=== PATIENT | female | born 1970 | race Caucasian/White ===

== ENCOUNTER 2016-11-28 19:04 | Emergency (ER) | payer BC ==
[2016-11-28 19:33] VITALS: TEMP 98.8
[2016-11-28] MEDS ORDERED: KETOROLAC TROMETHAMINE INJ 30 MG/ML VIAL IV ONE (20:09)
[2016-11-28] MEDS ORDERED: PROCHLORPERAZINE INJ 10 MG/2 ML VIAL IV ONE (20:09)
[2016-11-28] MEDS ORDERED: diphenhydrAMINE HCL 50 MG/ML VIAL IV ONE (20:09)
[2016-11-28] MEDS ORDERED: SODIUM CHLORIDE 0.9% 1000ML 1,000 ML IVS ONE (20:10)
--- NOTE | 2016-11-28 20:15 | ED.PDOC ---
History of Present Illness - General Chief Complaint: Headache Stated Complaint: headache, n/v Time Seen by Provider: 11/28/16 20:08 Source: patient, RN notes reviewed, Vital Signs reviewed Exam Limitations: no limitations - History of Present Illness Initial Comments: Patient is a 46 y/o female who has had a headache since last night. She has thrown up three times and has nausea as well. The headache is severe. Patient does have a history of migraines, however does not have any medication at home. She has taken Tylenol and Aleve without any relief. Timing/Duration: 24 hours Quality: severe, pressure, stabbing, throbbing Head Injury Location: global Recent Head Trauma: no recent headache/trauma Improving Factors: nothing Worsening Factors: movement, other - light, noise Associated Symptoms: nausea/vomiting Allergies/Adverse Reactions: Allergies Penicillins Allergy (Verified 02/06/14 00:59) Sulfa Antibiotics Allergy (Verified 02/06/14 00:59) Home Medications: Ambulatory Orders ALPRAZolam [Xanax] 0.25 mg PO TID 11/28/16 Amitriptyline HCl 10 mg PO PRN 11/28/16 Metformin HCl 500 mg PO BID 11/28/16 Prochlorperazine Tab [Compazine Tab] 10 mg PO Q6H PRN #5 tab 11/28/16 Promethazine Tab [Phenergan Tablet] 25 mg PO PRN 11/28/16 Review of Systems - Review of Systems Constitutional: States: no symptoms reported EENTM: States: no symptoms reported Respiratory: States: no symptoms reported Cardiology: States: no symptoms reported Gastrointestinal/Abdominal: States: nausea, vomiting Genitourinary: States: no symptoms reported Musculoskeletal: States: back pain, neck pain Skin: States: no symptoms reported Neurological: States: headache Endocrine: States: no symptoms reported Hematologic/Lymphatic: States: no symptoms reported All other Systems: Reviewed and Negative Past Medical History (General) - Patient Medical History Hx Seizures: No Hx Stroke: No Hx Dementia: No Hx Asthma: No Hx of COPD: No Hx Cardiac Disorders: No Hx Congestive Heart Failure: No Hx Pacemaker: No Hx Hypertension: Yes - "only with headaches" Hx Thyroid Disease: No Hx Diabetes: Yes Hx Gastroesophageal Reflux: No Hx Renal Disease: No Hx Cancer: No Hx of HIV: No Hx Hepatitis C: No Hx MRSA: No Surgical History: Hysterectomy - Vaccination History Hx Tetanus, Diphtheria Vaccination: Yes Hx Influenza Vaccination: No - Social History Hx Tobacco Use: No Hx Chewing Tobacco Use: No Hx Alcohol Use: No Hx Substance Use Treatment: No Hx Physical Abuse: No Hx Emotional Abuse: No Hx Suspected Abuse: No - Activities of Daily Living Hospice Agency (if applicable):: None - Female History Patient is a Female of Child Bearing Age (10 -59 yrs old): No Patient : No Family Medical History - Family History Mother Living Status: Still Living Hx Family Congestive Heart Failure: Yes Hx Family Diabetes: Yes Father Living Status: Hx Family Congestive Heart Failure: Yes Physical Exam - Physical Exam General Appearance: Alert, Obvious distress Eyes, Ears, Nose, Throat Exam: PERRL/EOMI, normal ENT inspection, TMs normal, pharynx normal Neck: full range of motion, tender lateral Cardiovascular/Chest: regular rate, rhythm, no edema, no gallop, no murmur Respiratory: lungs clear, normal breath sounds, no respiratory distress, no accessory muscle use Gastrointestinal/Abdominal: normal bowel sounds, soft, no organomegaly, tenderness - suprapubic Back Exam: normal inspection, no vertebral tenderness, CVA tenderness (R), CVA tenderness (L) Extremity: normal range of motion, non-tender, normal inspection, no pedal edema , no calf tenderness 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 I will give her a prescription for compazine and have instructed her to take this in addition to Aleve 440 mg and benadryl 50 mg should her headache return. She will follow up in the ED if her headache worsens or she starts running fever. - Results/Orders Results/Orders: 11/28/16 11/28/16 19:22 20:46 Temperature 98.8 F Pulse Rate [ 74 91 H left] Respiratory 18 18 Rate Blood Pressure 152/106 127/84 [Left Arm] O2 Sat by Pulse 99 97 Oximetry 11/28/16 20:25 ERYTHROCYTE SEDIMENTATION RATE Stat Laboratory Results WBC 6.8 K/mm3 (4.8-10.8) 11/28/16 20:25 RBC 4.44 M/mm3 (4.20-5.40) 11/28/16 20:25 Hgb 12.4 gm/dL (12.0-16.0) 11/28/16 20:25 Hct 36.6 % (36.0-47.0) 11/28/16 20:25 MCV 82.3 fl (81.0-99.0) 11/28/16 20:25 MCH 27.9 pg (27.0-31.0) 11/28/16: MCHC 33.8 g/dL (33.0-37.0) 11/28/16: RDW 13.1 % (11.5-14.5) 11/28/16 20: Plt Count 228 K/mm3 (130-400) 11/28/16 20:25 MPV 7.6 fl (7.40-10.4) 11/28/16 20:25 Absolute Neuts (auto) 3.60 K/uL (1.8-6.8) 11/28/16 20:25 Absolute Lymphs (auto) 2.40 K/uL (1.0-3.4) 11/28/16 20:25 Absolute Monos (auto) 0.50 K/uL (0.2-0.8) 11/28/16 20:25 Absolute Eos (auto) 0.20 K/uL (0.0-0.4) 11/28/16 20: Absolute Basos (auto) 0.00 K/uL (0.0-0.1) 11/28/16 20:25 Neutrophils % 52.9 % (42.0-78.0) 11/28/16 20:25 Lymphocytes % 35.2 % (20.0-50.0) 11/28/16 20: Monocytes % 7.9 % (2.0-9.0) 11/28/16 20:25 Eosinophils % 3.3 % (1.0-5.0) 11/28/16 20:25 Basophils % 0.7 % (0.0-2.0) 11/28/16 20:25 Sodium 140 mmol/L (135-145) 11/28/16 20:25 Potassium 3.7 mmol/L (3.6-5.0) 11/28/16 20:25 Chloride 103 mmol/L (101-111) 11/28/16 20:25 Carbon Dioxide 31 mmol/L (21-31) 11/28/16 20:25 Anion Gap 9.7 (12-18) L 11/28/16 20:25 BUN 16 mg/dL (7-18) 11/28/16 20:25 Creatinine 0.86 mg/dL (0.6-1.3) 11/28/16 20:25 BUN/Creatinine Ratio 18.6 (10-20) 11/28/16 20:25 Random Glucose 101 mg/dL (70-105) 11/28/16 20:25 Serum Osmolality 280.7 mOsm/L (275-295) 11/28/16 20:25 Calcium 9.0 mg/dL (8.4-10.2) 11/28/16 20:25 Total Bilirubin 0.6 mg/dL (0.2-1.0) 11/28/16 20:25 AST 22 IU/L (10-42) 11/28/16 20:25 ALT 23 IU/L (10-60) 11/28/16 20:25 Alkaline Phosphatase 65 IU/L (42-121) 11/28/16 20:25 Serum Total Protein 7.2 gm/dL (6.4-8.2) 11/28/16 20:25 Albumin 4.3 g/dl (3.2-5.5) 11/28/16 20:25 Globulin 2.9 gm/dL (2.3-3.5) 11/28/16 20:25 Albumin/Globulin Ratio 1.5 (1.1-1.9) 11/28/16 20:25 Urine Color Yellow (Yellow) 11/28/16 21:10 Urine Appearance Clear (Clear) 11/28/16 21:10 Urine pH 7.0 (4.5-7.8) 11/28/16 21:10 Ur Specific [place] 1.025 (1.005-1.030) 11/28/16 21:10 Urine Protein Trace mg/dL 11/28/16 21:10 Urine Glucose (UA) Negative mg/dL (Negative) 11/28/16 21:10 Urine Ketones 15 mg/dL (NEGATIVE) H 11/28/16 21:10 Urine Blood Negative (Negative) 11/28/16 21:10 Urine Nitrite Negative 11/28/16 21:10 Urine Bilirubin Negative (NEGATIVE) 11/28/16 21:10 Urine Urobilinogen 1.0 mg/dL (0.2-1.0) 11/28/16 21:10 Ur Leukocyte Esterase Negative (Negative) 11/28/16 21:10 Urine RBC 0 /hpf 11/28/16 21:10 Urine WBC 3-5 /hpf H 11/28/16 21:10 Ur Epithelial Cells 0-1 /hpf 11/28/16 21:10 Urine Bacteria 1+ 11/28/16 21:10 Urine Mucus Large 11/28/16 21:10 Departure - Departure Clinical Impression: Migraine Qualifiers: Migraine type: other Status migrainosus presence: without status migrainosus Intractability: not intractable Qualified Code(s): G43.809 - Other migraine, not intractable, without status migrainosus Time of Disposition: 21:22 Disposition: Discharge to Home or Self Care Condition: Excellent Departure Forms: ED Discharge - Pt. Copy, Patient Portal Self Enrollment Instructions: Migraine -- Adult, DI for Migraine Diet: resume usual diet Prescriptions: Prochlorperazine Tab [Compazine Tab] 10 mg PO Q6H PRN #5 tab PRN Reason: headache Home Medications: Ambulatory Orders ALPRAZolam [Xanax] 0.25 mg PO TID 11/28/16 Amitriptyline HCl 10 mg PO PRN 11/28/16 Metformin HCl 500 mg PO BID 11/28/16 Prochlorperazine Tab [Compazine Tab] 10 mg PO Q6H PRN #5 tab 11/28/16 Promethazine Tab [Phenergan Tablet] 25 mg PO PRN 11/28/16 Additional Instructions: Follow up with PCP if symptoms persist. May take over the counter Aleve 2 tablets, Benadryl 50 mg, and prescription compazine for headache. Follow up for worsening of headache or fever.
[2016-11-28 20:50] VITALS: O2SAT 97
[2016-11-28 21:39] VITALS: BP 128/74
== END 2016-11-28 21:40 | disposition home or self-care (01) ==
LOC: ER 19:04
DX: G43.809 Other migraine, not intractable, without status migrainosus (principal); I10 Essential (primary) hypertension; E11.9 Type 2 diabetes mellitus without complications; Z79.899 Other long term (current) drug therapy; Z88.0 Allergy status to penicillin; Z88.2 Allergy status to sulfonamides
CPT/HCPCS: 36415; 80053; 81001; 85025; 85651; J0780; J1200; J1885; J7030

== ENCOUNTER 2017-06-23 21:22 | Emergency (ER) | payer OTHER ==
[2017-06-23 22:07] VITALS: TEMP 98.3; O2SAT 100
[2017-06-23] MEDS ORDERED: PANTOPRAZOLE SODIUM IV 40 MG VIAL IV ONE (22:11)
[2017-06-23] MEDS ORDERED: LIDOCAINE VIS-MYLANTA 30 ML UD PO ONE (22:12)
--- NOTE | 2017-06-23 22:39 | ED.PDOC ---
History of Present Illness - General Chief Complaint: Abdominal Pain Stated Complaint: abd pain Time Seen by Provider: 06/23/17 21:24 Information Source: patient, RN notes reviewed, Vital Signs reviewed Exam Limitations: no limitations - History of Present Illness Initial Comments: Patient comes to the ER with c/o epigastric abdominal pain. She was diagnosed with stomach ulcers 2 months ago. She is taking Carafate TID, Zantac BID but is still hurting. She is tired of hurting and just wants to feel better. + nausea and vomiting. Pain radiates up into her chest. Abdominal Pain Onset Location: epigastric Pain Radiation: RUQ, chest, back - R flank Quality: moderate, sharpness, stabbing Timing/Duration: constant - for months Improving Factors: nothing Worsening Factors: nothing Associated Symptoms: back pain, chest pain, nausea/vomiting Review of Systems - Review of Systems Constitutional: States: no symptoms reported Respiratory: States: no symptoms reported Cardiology: States: no symptoms reported Gastrointestinal/Abdominal: States: see HPI, abdominal pain, nausea, vomiting Musculoskeletal: States: no symptoms reported Skin: States: no symptoms reported Neurological: States: no symptoms reported All other Systems: No Change from Baseline Past Medical History (General) - Patient Medical History Hx Seizures: No Hx Stroke: No Hx Dementia: No Hx Asthma: No Hx of COPD: No Hx Cardiac Disorders: No Hx Congestive Heart Failure: No Hx Pacemaker: No Hx Hypertension: Yes - "only with headaches" Hx Thyroid Disease: No Hx Diabetes: Yes Hx Gastroesophageal Reflux: No Hx Renal Disease: No Hx Cancer: No Hx of HIV: No Hx Hepatitis C: No Hx MRSA: No Surgical History: Hysterectomy, other - Vaccination History Hx Tetanus, Diphtheria Vaccination: Yes Hx Influenza Vaccination: No - Social History Hx Tobacco Use: No Hx Chewing Tobacco Use: No Hx Alcohol Use: No Hx Substance Use Treatment: No Hx Physical Abuse: No Hx Emotional Abuse: No Hx Suspected Abuse: No - Female History Patient : No Family Medical History - Family History Mother Living Status: Still Living Hx Family Congestive Heart Failure: Yes Hx Family Diabetes: Yes Father Living Status: Hx Family Congestive Heart Failure: Yes Physical Exam - Physical Exam General Appearance: Alert, No apparent distress, Well Developed, Well Groomed, Well Hydrated, Well Nourished Neck: supple, normal inspection Respiratory: lungs clear, normal breath sounds, no respiratory distress, no accessory muscle use, other - tender to palpation over lower sternum Cardiovascular/Chest: regular rate, rhythm, no gallop, no murmur Gastrointestinal/Abdominal: normal bowel sounds, soft, no organomegaly, tenderness - Epigastric and RUQ w/o guarding or rebound Extremity: normal range of motion, normal inspection Neurologic: alert, normal mood/affect, oriented x 3 Skin Exam: normal color, warm/dry Comments: Vital Signs 06/23/17 21:57 Temperature 98.3 F Pulse Rate [ 66 left] Respiratory 18 Rate Blood Pressure 140/69 [left] O2 Sat by Pulse 100 Oximetry Progress - Progress Progress: 06/23/17 23:11 She is feeling better after GI cocktail and Protonix 40mg IV Recommended Protonix BID and cut carafate to once a day at noon due to constipation. - Results/Orders Results/Orders: Laboratory Tests 06/23/17 06/23/17 22:20 22:20 WBC 7.3 RBC 4.10 L Hgb 11.6 L Hct 34.3 L MCV 83.7 MCH 28.2 MCHC 33.8 RDW 13.2 Plt Count 239 MPV 7.3 L Absolute Neuts (auto) 4.10 Absolute Lymphs (auto) 2.50 Absolute Monos (auto) 0.50 Absolute Eos (auto) 0.10 Absolute Basos (auto) 0.10 Neutrophils % 55.8 Lymphocytes % 34.4 Monocytes % 7.3 Eosinophils % 1.8 Basophils % 0.7 Sodium 140 Potassium 3.5 L Chloride 104 Carbon Dioxide 30 Anion Gap 9.5 L BUN 16 Creatinine 0.74 BUN/Creatinine Ratio 21.6 H Random Glucose 102 Serum Osmolality 280.8 Calcium 9.3 Total Bilirubin 0.2 AST 20 ALT 15 Alkaline Phosphatase 73 Serum Total Protein 7.3 Albumin 4.4 Globulin 2.9 Albumin/Globulin Ratio 1.5 Amylase 40 Lipase 27 Departure - Departure Clinical Impression: Gastric ulcer Qualifiers: Gastric ulcer chronicity: chronic Gastric ulcer complication status: without hemorrhage or perforation Qualified Code(s): K25.7 - Chronic gastric ulcer without hemorrhage or perforation GERD (gastroesophageal reflux disease) Qualifiers: Esophagitis presence: esophagitis presence not specified Qualified Code(s): K21.9 - Gastro-esophageal reflux disease without esophagitis Time of Disposition: 23:13 Disposition: Discharge to Home or Self Care Condition: Good Departure Forms: ED Discharge - Pt. Copy, Patient Portal Self Enrollment Instructions: DI for Gastric Ulcer Diet: resume usual diet Activity: increase activity as tolerated Referrals: SERGEY LINK [Primary Care Provider] - 1-2 Weeks Prescriptions: Pantoprazole Tablet [Protonix] 40 mg PO BID #60 tab Home Medications: Ambulatory Orders ALPRAZolam [Xanax] 0.25 mg PO TID 11/28/16 Amitriptyline HCl 10 mg PO PRN 11/28/16 Metformin HCl 500 mg PO BID 11/28/16 Prochlorperazine Tab [Compazine Tab] 10 mg PO Q6H PRN #5 tab 11/28/16 Promethazine Tab [Phenergan Tablet] 25 mg PO PRN 11/28/16 Pantoprazole Tablet [Protonix] 40 mg PO BID #60 tab 06/23/17
[2017-06-23 23:27] VITALS: BP 97/66
== END 2017-06-23 23:27 | disposition home or self-care (01) ==
LOC: ER 21:22
DX: K21.9 Gastro-esophageal reflux disease without esophagitis (principal); K25.7 Chronic gastric ulcer without hemorrhage or perforation; E11.9 Type 2 diabetes mellitus without complications

== ENCOUNTER 2018-01-18 09:08 | Emergency (ER) | payer SELFPAY ==
[2018-01-18] MEDS ORDERED: KETOROLAC TROMETHAMINE INJ 30 MG/ML VIAL IV ONE (09:32)
[2018-01-18] MEDS ORDERED: ONDANSETRON ODT 8 MG TAB SL ONE (09:32)
[2018-01-18] MEDS ORDERED: SODIUM CHLORIDE 0.9% 1000ML 1,000 ML IVS ONE (09:32)
[2018-01-18] MEDS ORDERED: ALUM & MAG HYDROX-SIMETHICONE 30 ML, LIDOCAINE VISCOUS 2% 15 ML PO ONE ×4 (09:32→10:25)
[2018-01-18] MEDS ORDERED: LIDOCAINE HCL 2% (MOUTH-THROAT) 15 ML UD ONE ×2 (09:35→10:30)
[2018-01-18] MEDS ORDERED: ALUM & MAG HYDROX-SIMETHICONE 30 ML UD ONE ×2 (09:36→10:30)
--- NOTE | 2018-01-18 09:36 | ED.PDOC ---
History of Present Illness - General Chief Complaint: General Stated Complaint: epigastric pain and emesis Time Seen by Provider: 01/18/18 09:30 Source: patient Exam Limitations: no limitations - History of Present Illness Initial Comments: patient comes in this morning via EMS for sudden onset of epigastric pain that radiates to the substernal area, diaphoresis, nausea and vomiting with onset of "migraine" headache. Patient states she has these headaches in the past and normally takes Tylenol for it. She's never been placed on triptan and a headache right now is severe, bilateral frontal, constant, with some associated photophobia. Patient states that on Sunday she had some dizziness and today she is well lightheaded but no overt vision change. Patient states the abdominal pain feels like a burning and a raw feeling in her throat and epigastric area from after she was having the emesis. She's been seen for something similar to this before and they thought it was gastritis. She has had endoscopy but states she is not sure if she had an ulcer or if she just had GERD. Patient currently takes Nexium for this and was recently changed from Protonix and Nexium just this week. Patient additionally states that she felt like her heart was racing and was beating very quickly when all this was happening. Patient currently continues to have discomfort in epigastric region which is more moderate with some nausea and the headache as listed above. Patient had been her usual health before this but has been suffering from reflux for some time. Patient does not smoke but does have a history of being diagnosed with prediabetes although she has not on any medication and her last hemoglobin A1c was 5.8. She has no family history of heart disease although both of her parents had heart failure in their 70s. Patient does not drink or take drugs but does take [id number]-[id number] supplements including peppermint oil. Timing/Duration: 1/2 hour Severity: severe Improving Factors: nothing Worsening Factors: nothing Associated Symptoms: other - see HPI Allergies/Adverse Reactions: Allergies Penicillins Allergy (Verified 02/06/14 00:59) Sulfa Antibiotics Allergy (Verified 02/06/14 00:59) Home Medications: Ambulatory Orders ALPRAZolam [Xanax] 0.25 mg PO TID 11/28/16 Amitriptyline HCl 10 mg PO PRN 11/28/16 Metformin HCl 500 mg PO BID 11/28/16 Prochlorperazine Tab [Compazine Tab] 10 mg PO Q6H PRN #5 tab 11/28/16 Promethazine Tab [Phenergan Tablet] 25 mg PO PRN 11/28/16 Pantoprazole Tablet [Protonix] 40 mg PO BID #60 tab 06/23/17 Review of Systems - Review of Systems Constitutional: States: diaphoresis, malaise, weakness. Denies: chills, fever EENTM: States: blurred vision. Denies: eye pain, double vision, ear pain, ear discharge, nose pain, nose congestion, throat pain Respiratory: Denies: cough, orthopnea, wheezing Cardiology: States: chest pain, palpitations. Denies: edema Gastrointestinal/Abdominal: States: abdominal pain, nausea, vomiting. Denies: constipation, diarrhea Genitourinary: States: no symptoms reported Musculoskeletal: States: no symptoms reported Skin: States: no symptoms reported Neurological: States: no symptoms reported Past Medical History (General) - Patient Medical History Hx Seizures: No Hx Stroke: No Hx Dementia: No Hx Asthma: No Hx of COPD: No Hx Cardiac Disorders: No Hx Congestive Heart Failure: No Hx Pacemaker: No Hx Hypertension: Yes - "only with headaches" Hx Thyroid Disease: No Hx Diabetes: No - prediabetes no meds HgA1C 5.8 Hx Gastroesophageal Reflux: No Hx Renal Disease: No Hx Cancer: No Hx of HIV: No Hx Hepatitis C: No Hx MRSA: No - Vaccination History Hx Tetanus, Diphtheria Vaccination: Yes Hx Influenza Vaccination: No - Social History Hx Tobacco Use: No Hx Chewing Tobacco Use: No Hx Alcohol Use: No Hx Substance Use Treatment: No Hx Physical Abuse: No Hx Emotional Abuse: No Hx Suspected Abuse: No - Female History Patient : No Family Medical History - Family History Mother Living Status: Still Living Hx Family Congestive Heart Failure: Yes Hx Family Diabetes: Yes Father Living Status: Hx Family Congestive Heart Failure: Yes Physical Exam - Physical Exam General Appearance: Alert, Comfortable Eye Exam: bilateral normal Ears, Nose, Throat: hearing grossly normal, normal ENT inspection, normal pharynx Neck: non-tender, full range of motion, supple, normal inspection, carotid bruit Respiratory: chest non-tender, lungs clear, normal breath sounds, no respiratory distress, no accessory muscle use Cardiovascular/Chest: normal peripheral pulses, regular rate, rhythm, no edema, no gallop, no JVD, no murmur Peripheral Pulses: radial,right: 2+, radial,left: 2+, posterior tibialis,right: 2+, posterior tibialis,left: 2+ Gastrointestinal/Abdominal: normal bowel sounds, soft, no organomegaly, no pulsatile mass, other - TTP at the epigastrum and R and L UQ with no rebound or guarding Back Exam: normal inspection, no CVA tenderness Extremity: normal range of motion Neurologic: alert, oriented x 3 Progress - Progress Progress: 01/18/18 10:26 01/18/18 09:32 Sodium Chloride 0.9% 1000ML [Ns 1000 ml] 1,000 ml IVS ONCE 01/18/18 09:45 EKG STAT 01/18/18 10:25 GI Cocktail 45 ML Alum & Mag Hydrox-Simethicone [Mylanta] 30 ml Lidocaine Viscous 2% [Xylocaine Viscous 2%] 15 ml PO ONCE Abdomen,Limited [US] Stat Laboratory Results WBC 11.9 K/mm3 (4.8-10.8) H 01/18/18 09:41 RBC 4.76 M/mm3 (4.20-5.40) 01/18/18 09:41 Hgb 13.4 gm/dL (12.0-16.0) 01/18/18 09:41 Hct 39.5 % (36.0-47.0) 01/18/18 09:41 MCV 83.0 fl (81.0-99.0) 01/18/18 09:41 MCH 28.2 pg (27.0-31.0) 01/18/18 09:41 MCHC 34.0 g/dL (33.0-37.0) 01/18/18 09:41 RDW 13.2 % (11.5-14.5) 01/18/18 09:41 Plt Count 283 K/mm3 (130-400) 01/18/18 09:41 MPV 7.8 fl (7.40-10.4) 01/18/18 09:41 Absolute Neuts (auto) 10.00 K/uL (1.8-6.8) H 01/18/18 09:41 Absolute Lymphs (auto) 1.20 K/uL (1.0-3.4) 01/18/18 09:41 Absolute Monos (auto) 0.50 K/uL (0.2-0.8) 01/18/18 09:41 Absolute Eos (auto) 0.10 K/uL (0.0-0.4) 01/18/18 09:41 Absolute Basos (auto) 0.00 K/uL (0.0-0.1) 01/18/18 09:41 Neutrophils % 84.3 % (42.0-78.0) H 01/18/18 09:41 Lymphocytes % 10.1 % (20.0-50.0) L 01/18/18 09:41 Monocytes % 4.5 % (2.0-9.0) 01/18/18 09:41 Eosinophils % 0.7 % (1.0-5.0) L 01/18/18 09:41 Basophils % 0.4 % (0.0-2.0) 01/18/18 09:41 Sodium 138 mmol/L (135-145) 01/18/18 09:41 Potassium 3.9 mmol/L (3.6-5.0) 01/18/18 09:41 Chloride 102 mmol/L (101-111) 01/18/18 09:41 Carbon Dioxide 28 mmol/L (21-31) 01/18/18 09:41 Anion Gap 11.9 (12-18) L 01/18/18 09:41 BUN 14 mg/dL (7-18) 01/18/18 09:41 Creatinine 0.69 mg/dL (0.6-1.3) 01/18/18 09:41 BUN/Creatinine Ratio 20.3 (10-20) H 01/18/18 09:41 Random Glucose 149 mg/dL (70-105) H 01/18/18 09:41 Serum Osmolality 279.0 mOsm/L (275-295) 01/18/18 09:41 Calcium 9.5 mg/dL (8.4-10.2) 01/18/18 09:41 Total Bilirubin 0.6 mg/dL (0.2-1.0) 01/18/18 09:41 AST 27 IU/L (10-42) 01/18/18 09:41 ALT 28 IU/L (10-60) 01/18/18 09:41 Alkaline Phosphatase 88 IU/L (42-121) 01/18/18 09:41 Creatine Kinase 85 IU/L (26-140) 01/18/18 09:41 CK-MB (CK-2) 1.6 ng/mL (0.0-4.4) 01/18/18 09:41 CK-MB (CK-2) % Not Reportable 01/18/18 09:41 Troponin I < 0.02 ng/mL (0.01-0.05) 01/18/18 09:41 Serum Total Protein 8.0 gm/dL (6.4-8.2) 01/18/18 09:41 Albumin 4.3 g/dl (3.2-5.5) 01/18/18 09:41 Globulin 3.7 gm/dL (2.3-3.5) H 01/18/18 09:41 Albumin/Globulin Ratio 1.2 (1.1-1.9) 01/18/18 09:41 Amylase 42 U/L (28-100) 01/18/18 09:41 Lipase 23 U/L (22-51) 01/18/18 09:41 EKG HR of 91 with NSR and normal axis and no ST elevation or depression after GI cocktail patient states her pain is down from a 9 to a 7. However she is now sitting up talking comfortably without a noticeable discomfort. On exam she does not some mild tenderness epigastric area but no rebound or guarding. We have ordered a another GI cocktail and ultrasound of her gallbladder as she does still continue to have significant discomfort. However, patient looks noticeably improved. 01/18/18 12:19 Patient Name: YEIMY MCKEON Gender: Female Date of : 1970 Referring Physician: LIDIA ESCOBEDO Organization: [facility] Accession Number: [id number] Requested Date: January 18, 2018 10:25 Report Status: Final Requested Procedure: 1 Procedure Description: Abdomen,Limited Modality: US Findings Reporting MD: Mike Castro Fellow MD: Not available Dictation Time: Grocery Clerk Marking: Not available Equip Maint Eng Date: EXAM DESCRIPTION: Abdomen,Limited CLINICAL HISTORY: epigastric and RUQ pain ?hortensia COMPARISON: None Available. TECHNIQUE: Right upper quadrant ultrasound] FINDINGS: The liver has a normal appearance. There is no bile duct dilatation. The common bile duct measures 6 mm. The gallbladder appears distended. No stones are seen. Increased echogenicity and a full or thickened appearance to the pancreas is observed. No mass is detected. The upper abdominal aorta and the inferior vena cava are unremarkable. The right kidney is normal in size, shape, and echotexture. IMPRESSION: 1. An edematous appearance is observed to the pancreas. 2. The gallbladder is distended without stones Pain is almost completely resolved as has headache after second GI cocktail. Patient has had no emesis since arrival. Patient states she started getting sick when she switched to the Nexium earlier this week. She will stop Nexium and restart Protonix. [place] diet and follow up with GI for pancreatic swelling and possible Hida scan. Patient to stop peppermint oil as well. Departure - Departure Clinical Impression: Gastritis Qualifiers: Gastritis type: unspecified gastritis Chronicity: acute Gastritis bleeding: without bleeding Qualified Code(s): K29.00 - Acute gastritis without bleeding Disposition: Discharge to Home or Self Care Condition: Good Departure Forms: ED Discharge - Pt. Copy, Patient Portal Self Enrollment Diet: bland diet Activity: increase activity as tolerated Referrals: SERGEY LINK [Primary Care Provider] - 1-2 Weeks Home Medications: Ambulatory Orders ALPRAZolam [Xanax] 0.25 mg PO TID 11/28/16 Amitriptyline HCl 10 mg PO PRN 11/28/16 Metformin HCl 500 mg PO BID 11/28/16 Prochlorperazine Tab [Compazine Tab] 10 mg PO Q6H PRN #5 tab 11/28/16 Promethazine Tab [Phenergan Tablet] 25 mg PO PRN 11/28/16 Pantoprazole Tablet [Protonix] 40 mg PO BID #60 tab 06/23/17 Additional Instructions: patient is to stop Nexium and restart her Protonix. [place] diet. Stop Peppermint oil supplement. Follow-up with GI within the next week to discuss if HIDA scan and follow up on the pancreas as needed.
--- NOTE | 2018-01-18 10:06 | RAD ---
EXAM DESCRIPTION: Chest,1 View CLINICAL HISTORY: epigastic/chest pain COMPARISON: Chest radiograph dated September 28, 2010 Findings: Single upright portable frontal view of the chest. Cardiac silhouette and pulmonary vascularity are within normal limits. Lungs are clear without focal consolidative infiltrates. No pleural effusion. No pneumothorax. No acute osseous abnormality. IMPRESSION: No radiographic evidence for acute cardiopulmonary process. Electronically signed by: Mike Agustin MD 01/18/2018 10:05 AM CDT
--- NOTE | 2018-01-18 12:06 | US ---
EXAM DESCRIPTION: Abdomen,Limited CLINICAL HISTORY: epigastric and RUQ pain ?hortensia COMPARISON: None Available. TECHNIQUE: Right upper quadrant ultrasound] FINDINGS: The liver has a normal appearance. There is no bile duct dilatation. The common bile duct measures 6 mm. The gallbladder appears distended. No stones are seen. Increased echogenicity and a full or thickened appearance to the pancreas is observed. No mass is detected. The upper abdominal aorta and the inferior vena cava are unremarkable. The right kidney is normal in size, shape, and echotexture. IMPRESSION: 1. An edematous appearance is observed to the pancreas. 2. The gallbladder is distended without stones. Electronically signed by: Mike Castro MD 01/18/2018 12:04 PM CDT
[2018-01-18 12:15] VITALS: TEMP 97.7; O2SAT 100
[2018-01-18 12:40] VITALS: BP 127/71
== END 2018-01-18 12:47 | disposition home or self-care (01) ==
LOC: ER 09:08
DX: K29.00 Acute gastritis without bleeding (principal); G43.909 Migraine, unspecified, not intractable, without status migrainosus; R42 Dizziness and giddiness; R73.03 Prediabetes; I10 Essential (primary) hypertension; Z79.899 Other long term (current) drug therapy; Z88.0 Allergy status to penicillin; Z88.2 Allergy status to sulfonamides
CPT/HCPCS: 36415; 71045; 76775; 80053; 82150; 82550; 82553; 83690; 84484; 85025; 93005; J1885; J7030

== ENCOUNTER 2018-03-27 19:44 | Observation (INO) | payer SELFPAY ==
--- NOTE | 2018-03-27 20:04 | ED.PDOC ---
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 Timing/Duration: constant, other - 36 hours Severity: moderate Improving Factors: nothing Worsening Factors: nothing Associated Symptoms: other - see hpi Allergies/Adverse Reactions: Allergies Penicillins Allergy (Verified 02/06/14 00:59) Sulfa Antibiotics Allergy (Verified 02/06/14 00:59) Home Medications: Ambulatory Orders ALPRAZolam [Xanax] 0.25 mg PO TID 11/28/16 Amitriptyline HCl 10 mg PO PRN 11/28/16 Metformin HCl 500 mg PO BID 11/28/16 Prochlorperazine Tab [Compazine Tab] 10 mg PO Q6H PRN #5 tab 11/28/16 Promethazine Tab [Phenergan Tablet] 25 mg PO PRN 11/28/16 Pantoprazole Tablet [Protonix] 40 mg PO BID #60 tab 06/23/17 Review of Systems - Review of Systems Constitutional: States: no symptoms reported EENTM: States: no symptoms reported Respiratory: States: no symptoms reported Cardiology: States: no symptoms reported Gastrointestinal/Abdominal: States: no symptoms reported Genitourinary: States: no symptoms reported Skin: States: see HPI Neurological: States: anxiety, depressed Endocrine: States: no symptoms reported Past Medical History (General) - Patient Medical History Hx Seizures: No Hx Stroke: No Hx Dementia: No Hx Asthma: No Hx of COPD: No Hx Cardiac Disorders: No Hx Congestive Heart Failure: No Hx Pacemaker: No Hx Hypertension: Yes - "only with headaches" Hx Thyroid Disease: No Hx Diabetes: No - prediabetes no meds HgA1C 5.8 Hx Gastroesophageal Reflux: Yes Hx Renal Disease: No Hx Cancer: No Hx of HIV: No Hx Hepatitis C: No Hx MRSA: No Hx Other PMH: Yes - anxiety /depression takes prozac as needed Surgical History: tonsillectomy, other - hysterectomy,BTL,benign cyst left breast - Vaccination History Hx Tetanus, Diphtheria Vaccination: Yes Hx Influenza Vaccination: No Hx Pneumococcal Vaccination: No - Social History Hx Tobacco Use: No Hx Chewing Tobacco Use: No Hx Alcohol Use: No Hx Substance Use Treatment: No Hx Physical Abuse: No Hx Emotional Abuse: No Hx Suspected Abuse: No - Female History Patient : No Family Medical History - Family History Mother Living Status: Still Living Hx Family Congestive Heart Failure: Yes - dad Hx Family Stroke: Yes - mom Hx Family Diabetes: Yes - mom/sister Father Living Status: Hx Family Congestive Heart Failure: Yes Physical Exam - Physical Exam General Appearance: Alert, Anxious, Comfortable, No apparent distress Eye Exam: bilateral normal Ears, Nose, Throat: hearing grossly normal, normal ENT inspection, normal pharynx Neck: non-tender, full range of motion, supple Respiratory: chest non-tender, lungs clear, normal breath sounds, no respiratory distress Cardiovascular/Chest: normal peripheral pulses, regular rate, rhythm, no murmur Peripheral Pulses: radial,right: 2+, radial,left: 2+ Gastrointestinal/Abdominal: normal bowel sounds, non tender, soft, no organomegaly Back Exam: normal inspection, no CVA tenderness, no vertebral tenderness Extremity: normal range of motion - both upper extremitites, non-tender, no pedal edema, no calf tenderness, other Neurologic: no motor/sensory deficits, alert, oriented x 3 Skin Exam: normal color, warm/dry Lymphatic: no adenopathy Progress - Progress Progress: 03/27/18 20:58 Vital Signs - 8 hr 03/27/18 19:57 Temperature 98.2 F Pulse Rate 66 Pulse Rate [ 67 left] Respiratory 18 Rate Blood Pressure 138/86 [right] O2 Sat by Pulse 95 Oximetry 03/27/18 23:22 Discuss test result with patient decides to stay in hospital for OBS - Results/Orders Results/Orders: 03/27/18 21:00 EKG STAT 03/27/18 22:15 EKG STAT Laboratory Results - last 24 hr 03/27/18 03/27/18 03/27/18 20:14 20:25 22:18 WBC 7.1 RBC 4.44 Hgb 12.4 Hct 37.9 MCV 85.4 MCH 27.8 MCHC 32.6 L RDW 13.2 Plt Count 265 MPV 7.7 Absolute Neuts (auto) 4.20 Absolute Lymphs (auto) 2.30 Absolute Monos (auto) 0.50 Absolute Eos (auto) 0.10 Absolute Basos (auto) 0.00 Neutrophils % 58.7 Lymphocytes % 32.1 Monocytes % 7.4 Eosinophils % 1.2 Basophils % 0.6 PT 9.9 INR 0.99 PTT (SP) 27.6 Sodium 140 Potassium 3.7 Chloride 103 Carbon Dioxide 28 Anion Gap 12.7 BUN 7 Creatinine 0.76 BUN/Creatinine Ratio 9.2 L Random Glucose 119 H Serum Osmolality 278.5 Calcium 9.6 Magnesium 2.0 Total Bilirubin 0.4 Direct Bilirubin < 0.1 Indirect Bilirubin 0.3 AST 22 ALT 16 Alkaline Phosphatase 78 Creatine Kinase 131 CK-MB (CK-2) 2.6 CK-MB (CK-2) % Not Reportable Troponin I < 0.02 < 0.02 Serum Total Protein 7.7 Albumin 4.5 Urine Color Yellow Urine Appearance Clear Urine pH 7.0 Ur Specific [place] 1.015 Urine Protein Negative Urine Glucose (UA) Negative Urine Ketones Negative Urine Blood Trace-intact H Urine Nitrite Negative Urine Bilirubin Negative Urine Urobilinogen 0.2 Ur Leukocyte Esterase Negative Urine RBC 3-5 H Urine WBC 1-3 Ur Epithelial Cells 5-10 Urine Bacteria Rare - EKG/XRAY/CT EKG: Sinus, nonspecific ST T wave Chg - anterior leads, Unchanged from - 16 January 2018 Comments: HR-63 Departure - Departure Clinical Impression: Left upper limb pain, Atypical angina Time of Disposition: 23:22 Disposition: Admit Patient Condition: Fair Departure Forms: ED Discharge - Pt. Copy, Patient Portal Self Enrollment Referrals: SERGEY LINK [Primary Care Provider] - 1-2 Weeks Home Medications: Ambulatory Orders ALPRAZolam [Xanax] 0.25 mg PO TID 11/28/16 Amitriptyline HCl 10 mg PO PRN 11/28/16 Metformin HCl 500 mg PO BID 11/28/16 Prochlorperazine Tab [Compazine Tab] 10 mg PO Q6H PRN #5 tab 11/28/16 Promethazine Tab [Phenergan Tablet] 25 mg PO PRN 11/28/16 Pantoprazole Tablet [Protonix] 40 mg PO BID #60 tab 06/23/17 Decision To Admit - Decistion To Admit Decision to Admit Reason: Admit from ER Decision to Admit Date: 03/27/18 - D/W Frances Pate-ANP/Hospitalist Decision to Admit Time: 23:20
[2018-03-27] MEDS ORDERED: ASPIRIN (CHEWABLE) 81 MG TAB PO ONE (20:05)
--- NOTE | 2018-03-27 20:41 | RAD ---
EXAM DESCRIPTION: Chest,1 View CLINICAL HISTORY: pain COMPARISON: Chest radiograph dated January 18, 2018 FINDINGS: Single upright portable AP view of the chest. Overall, stable chest radiograph compared to January 18, 2018. Cardiomediastinal silhouette and pulmonary vascularity are within normal limits. Lungs are clear without focal consolidations. Bilateral costophrenic angles are sharp. No pneumothorax. Visualized osseous structures show no destructive lesions. IMPRESSION: No radiographic evidence for acute cardiopulmonary process. Electronically signed by: Mike Agustin MD 03/27/2018 8:40 PM CDT
[2018-03-27] MEDS ORDERED: METHOCARBAMOL 750 MG TAB PO ONE (22:50)
[2018-03-28] MEDS ORDERED: MORPHINE SULFATE INJ 10 MG/ML VIAL IV PRN (00:02)
[2018-03-28] MEDS ORDERED: SODIUM CHLORIDE 0.9% (FLUSH) 10 ML SYG IV PRN (00:02)
[2018-03-28] MEDS ORDERED: ACETAMINOPHEN 325 MG TAB PO PRN (00:02)
[2018-03-28] MEDS ORDERED: NITROGLYCERIN 0.4 MG 25 EA TAB SL PRN (00:02)
[2018-03-28] MEDS ORDERED: DEXTROSE 50% 25 GM/50 ML SYG IV PRN (00:09)
[2018-03-28] MEDS ORDERED: GLUCAGON INJ 1 MG VIAL SUBCU PRN (00:09)
[2018-03-28] MEDS ORDERED: ALPRAZolam 0.25 MG TAB PO PRN (00:10)
[2018-03-28] MEDS ORDERED: IV SET AND CAP CHANGE INJ INJ SCH (00:30)
[2018-03-28] MEDS ORDERED: ENOXAPARIN SODIUM 40 MG/0.4 ML SYG SUBCU SCH ×2 (00:30→21:00)
[2018-03-28] MEDS ORDERED: PANTOPRAZOLE SODIUM IV 40 MG VIAL IV SCH (06:30)
[2018-03-28] MEDS ORDERED: INSULIN LISPRO 100 UNITS/ML PEN SUBCU SCH (07:00)
[2018-03-28] MEDS ORDERED: POTASSIUM CHLORIDE 20 MEQ TAB PO ONE (08:29)
[2018-03-28] MEDS ORDERED: ASPIRIN TABLET 325 MG TAB PO SCH (09:00)
[2018-03-28] MEDS ORDERED: SODIUM CHLORIDE 0.9% (FLUSH) 10 ML SYG IV SCH (09:00)
[2018-03-28 10:02] VITALS: BP 99/66; TEMP 97.9; O2SAT 97
--- NOTE | 2018-03-28 11:04 | SSS ---
SUPERVISING PHYSICIAN: Kieran Goff MD DISCHARGE DIAGNOSIS: 1. Chest pain, rule out myocardial infarction. Her serial cardiac enzymes in the hospital have been negative. 2. Cervical radiculopathy. 3. Gastroesophageal reflux disease. 4. Chronic low back pain due to scoliosis and degenerative disc disease. HISTORY OF PRESENT ILLNESS: This is a 48-year-old female patient who presented to the Emergency Room after having pain and tingling in her left upper extremity for two days. The pain and tingling radiated down the left arm. She also had some pain in the left side of her chest. There was no diaphoresis and it was constant. There was nothing that made the chest pain worse or alleviated symptoms. She did admit to being under quite a bit of stress over the last few weeks and she does have some anxiety. There has been some increased stress in her life. Initially in the Emergency Room, her initial cardiac enzymes were negative. Her initial EKG did have some flattening of her ST segment that was slightly different from a previous EKG, but no ischemic changes. CBC was basically within normal limits. Chemistry was basically within normal limits with the exception of her glucose slightly elevated at 119. Subsequent troponin 2 hours later was negative. Her serial cardiac enzymes were negative. This morning, her electrolytes were basically within normal limits with the exception of her potassium which was slightly low. She received a dose of p.o. potassium. She had no further complaints of chest pain while in the hospital. She does have a history of low back pain due to scoliosis and degenerative disc disease. She may have some degenerative disease in her cervical vertebrae causing the tingling. I will do a cervical spine x-ray prior to discharge. The patient will be discharged home today in stable condition. PAST MEDICAL HISTORY: 1. Gastroesophageal reflux disease. 2. Chronic low back pain due to degenerative disc disease and scoliosis. 3. Borderline diabetes mellitus. PAST SURGICAL HISTORY: 1. Tonsillectomy. 2. Tubal ligation. 3. Partial hysterectomy. 4. Left oophorectomy. 5. Cyst removed from her breast. ALLERGIES: PENICILLIN, SULFA. SOCIAL HISTORY: She lives in [place]. She is . She works at [employer]. She denies any tobacco, ETOH or illicit drug use. REVIEW OF SYSTEMS: Twelve-point review of systems is negative at exam except for the mild tingling in her left arm. PHYSICAL EXAMINATION: VITAL SIGNS: Afebrile. Heart rate 64. Blood pressure 99/66. Respiratory rate 16. O2 saturation 97% on room air. GENERAL: This is a 48-year-old female patient lying in her hospital bed. She is in no acute distress. HEENT: Normocephalic, atraumatic. Pupils are equal and reactive. Oropharynx is clear. NECK: Supple without mass. RESPIRATORY: Essentially clear to auscultation bilaterally. CHEST: There is equal rise and fall of the chest with inspiration and expiration. 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 GASTROINTESTINAL: Abdomen is soft, nondistended, nontender. Bowel sounds are positive. EXTREMITIES: No cyanosis, clubbing or edema. SKIN: Warm and dry. NEUROLOGIC: Awake, alert and oriented times three. Cranial nerves II-XII are grossly intact. LABORATORY: Labs are as per history of present illness. Her chest x-ray shows no acute cardiopulmonary processes. DISCHARGE PLAN: The patient will be discharged home in stable condition. She is to resume her previous activity as tolerated as well as resuming her previous diet and her medications. She is to have followup with Dr. Osei within the next one to two weeks. I have obtained a cervical spine x-ray and it is recommended he followup on that due to the cervical radiculopathy in her left arm. I have also sent her home on some p.r.n. Flexeril. She is to return to the hospital or followup with Dr. Osei for any further problems or complications. DISCHARGE MEDICATIONS: 1. Promethazine. 2. Pantoprazole. 3. Sucralfate. 4. Cyclobenzaprine. #[id number] [facility]
--- NOTE | 2018-03-28 11:23 | RAD ---
Three-view cervical spine. Indication: cervical radiculopathy Comparison: None. Impression: Vertebral body height maintained without acute fracture or subluxation. Disc space height preserved. Straightening cervical spine. C1-C2 articular unremarkable. Electronically signed by: Quintin Young MD 03/28/2018 11:22 AM CDT
== END 2018-03-28 11:08 | disposition home or self-care (01) ==
LOC: ER 19:44 → MS 23:44
PROVIDERS: ADMIT Nurse Practitioner Acute Care; ATTEND Nurse Practitioner Acute Care
DX: R07.89 Other chest pain (principal); M54.12 Radiculopathy, cervical region; K21.9 Gastro-esophageal reflux disease without esophagitis; G89.29 Other chronic pain; M51.36 Other intervertebral disc degeneration, lumbar region; M41.86 Other forms of scoliosis, lumbar region; R73.03 Prediabetes; Z79.84 Long term (current) use of oral hypoglycemic drugs; Z79.899 Other long term (current) drug therapy; Z88.0 Allergy status to penicillin; Z88.2 Allergy status to sulfonamides
CPT/HCPCS: 96372; 96374; J1650; 80048 ×2; 82553 ×3; 82948; 80061; 36415 ×3; 82550 ×3; 85025 ×2; 85730; 85610; 84484 ×4; 81001; 80076; 36416; 71045; 72040; 94760 ×2; 99285; 93005 ×4; G0378

== ENCOUNTER 2018-07-06 18:24 | Emergency (ER) | payer BC ==
[2018-07-06 18:38] VITALS: TEMP 97.8; O2SAT 100
[2018-07-06] MEDS ORDERED: KETOROLAC TROMETHAMINE INJ 30 MG/ML VIAL IV ONE (18:44)
[2018-07-06] MEDS ORDERED: ONDANSETRON ODT 8 MG TAB SL ONE (18:44)
[2018-07-06] MEDS ORDERED: SODIUM CHLORIDE 0.9% 1000ML 1,000 ML IVS ONE (18:44)
--- NOTE | 2018-07-06 18:48 | ED.PDOC ---
History of Present Illness - General Chief Complaint: Abdominal Pain Stated Complaint: Abdominal discomfort Time Seen by Provider: 07/06/18 18:44 Information Source: patient Exam Limitations: no limitations - History of Present Illness Initial Comments: patient comes in today with 1 day history of severe, worsening, right lower quadrant abdominal pain. Patient states the pain in started out in the periumbilical area but then has now radiated to the right lower quadrant where the majority of the pain is at this time. Patient states she's had some associated nausea and vomiting with it but no diarrhea or constipation. She's had temperature over 101 and denies any dysuria or difficulty with urination. Patient states she's never had abdominal problems like this before and doesn't know of anything that has helped thus far. Patient rates the pain a 9/10. Patient has no significant past medical history. Patient's surgical history is positive for cholecystectomy and hysterectomy with right oophorectomy. Abdominal Pain Onset Location: RLQ Pain Radiation: periumbilical Quality: severe, sharpness Timing/Duration: 24 hours, getting worse Improving Factors: nothing Worsening Factors: nothing Associated Symptoms: fever/chills, nausea/vomiting Review of Systems - Review of Systems Constitutional: States: chills, fever, malaise EENTM: States: no symptoms reported. Denies: eye pain, ear pain, nose congestion, throat pain Respiratory: States: no symptoms reported. Denies: cough, short of breath, wheezing Cardiology: States: no symptoms reported. Denies: chest pain, palpitations, syncope Gastrointestinal/Abdominal: States: see HPI, abdominal pain, nausea, vomiting Genitourinary: States: no symptoms reported. Denies: discharge, dysuria, frequency, hematuria Musculoskeletal: States: no symptoms reported Skin: States: no symptoms reported Past Medical History (General) - Patient Medical History Hx Seizures: No Hx Stroke: No Hx Dementia: No Hx Asthma: No Hx of COPD: No Hx Cardiac Disorders: No Hx Congestive Heart Failure: No Hx Pacemaker: No Hx Hypertension: No Hx Thyroid Disease: No Hx Diabetes: No Hx Gastroesophageal Reflux: Yes Hx Renal Disease: No Hx Cancer: No Hx of HIV: No Hx Hepatitis C: No Hx MRSA: No Surgical History: cholecystectomy, Hysterectomy - Vaccination History Hx Tetanus, Diphtheria Vaccination: Yes Hx Influenza Vaccination: Yes - 2018 Hx Pneumococcal Vaccination: No - Social History Hx Tobacco Use: No Hx Chewing Tobacco Use: No Hx Alcohol Use: No Hx Substance Use: No Hx Substance Use Treatment: No Hx Depression: No Hx Physical Abuse: No Hx Emotional Abuse: No Hx Suspected Abuse: No - Female History Patient is a Female of Child Bearing Age (10 -59 yrs old): No - Hysterectomy Patient : No Family Medical History - Family History Mother Living Status: Hx Family Congestive Heart Failure: Yes Hx Family Hypertension: Yes Hx Family Stroke: Yes Hx Cardiac Disease: Yes Hx Family Diabetes: Yes - mom/sister Father Living Status: Hx Family Congestive Heart Failure: Yes Physical Exam - Physical Exam General Appearance: Alert, Restless Eyes, Ears, Nose, Throat Exam: PERRL/EOMI, normal ENT inspection, TMs normal, pharynx normal Neck: non-tender, full range of motion, supple, normal inspection Respiratory: chest non-tender, lungs clear, normal breath sounds, no respiratory distress Cardiovascular/Chest: normal peripheral pulses, regular rate, rhythm, no edema, systolic murmur - 2/6 (patient states known) best heard at left sternal border Peripheral Pulses: No deficit Gastrointestinal/Abdominal: normal bowel sounds, soft, tenderness - tender RLQ with no masses no rebound no guarding, non distended, Neurologic: alert, oriented x 3 Progress - Progress Progress: 07/06/18 19:53 patient feeling a little better but still some discomfort. Discussed negative work up. She understands to come back if pain worsens to be re-evaluated. - Results/Orders Results/Orders: 07/06/18 18:44 Sodium Chloride 0.9% 1000ML [Ns 1000 ml] 1,000 ml IVS ONCE 07/06/18 19:10 AMYLASE Stat COMPLETE METABOLIC PROFILE Stat LIPASE Stat Laboratory Results WBC 7.7 K/mm3 (4.8-10.8) 07/06/18 19:10 RBC 4.78 M/mm3 (4.20-5.40) 07/06/18 19:10 Hgb 13.6 gm/dL (12.0-16.0) 07/06/18 19:10 Hct 40.5 % (36.0-47.0) 07/06/18 19:10 MCV 84.7 fl (81.0-99.0) 07/06/18 19:10 MCH 28.5 pg (27.0-31.0) 07/06/18 19:10 MCHC 33.6 g/dL (33.0-37.0) 07/06/18 19:10 RDW 13.3 % (11.5-14.5) 07/06/18 19:10 Plt Count 291 K/mm3 (130-400) 07/06/18 19:10 MPV 7.2 fl (7.40-10.4) L 07/06/18 19:10 Absolute Neuts (auto) 4.70 K/uL (1.8-6.8) 07/06/18 19:10 Absolute Lymphs (auto) 2.20 K/uL (1.0-3.4) 07/06/18 19:10 Absolute Monos (auto) 0.50 K/uL (0.2-0.8) 07/06/18 19:10 Absolute Eos (auto) 0.20 K/uL (0.0-0.4) 07/06/18 19:10 Absolute Basos (auto) 0.10 K/uL (0.0-0.1) 07/06/18 19:10 Neutrophils % 61.0 % (42.0-78.0) 07/06/18 19:10 Lymphocytes % 28.6 % (20.0-50.0) 07/06/18 19:10 Monocytes % 6.7 % (2.0-9.0) 07/06/18 19:10 Eosinophils % 3.0 % (1.0-5.0) 07/06/18 19:10 Basophils % 0.7 % (0.0-2.0) 07/06/18 19:10 Urine Color Yellow (Yellow) 07/06/18 19:00 Urine Appearance Clear (Clear) 07/06/18 19:00 Urine pH 5.5 (4.5-7.8) 07/06/18 19:00 Ur Specific [place] >= 1.030 (1.005-1.030) 07/06/18 19:00 Urine Protein Negative mg/dL 07/06/18 19:00 Urine Glucose (UA) Negative mg/dL (Negative) 07/06/18 19:00 Urine Ketones Negative mg/dL (NEGATIVE) 07/06/18 19:00 Urine Blood Negative (Negative) 07/06/18 19:00 Urine Nitrite Negative 07/06/18 19:00 Urine Bilirubin Negative (NEGATIVE) 07/06/18 19:00 Urine Urobilinogen 0.2 mg/dL (0.2-1.0) 07/06/18 19:00 Ur Leukocyte Esterase Negative (Negative) 07/06/18 19:00 Urine RBC 1-3 /hpf 07/06/18 19:00 Urine WBC 0-1 /hpf 07/06/18 19:00 Ur Epithelial Cells 0 /hpf 07/06/18 19:00 Urine Bacteria 1+ 07/06/18 19:00 Urine Mucus Trace 07/06/18 19:00 Patient Name: YEIMY MCKEON Gender: Female Date of : 1970 Referring Physician: LIDIA ESCOBEDO Organization: [facility] Accession Number: [id number] Requested Date: July 06, 2018 18:44 Report Status: Final Requested Procedure: 1 Procedure Description: Abdoment/Pelvis w/o Contrast Modality: CT Findings Reporting MD: Carlos Alberto Zapata Fellow MD: Not available Dictation Time: Personal Care Assistant: Not available Pest Control Worker Date: EXAM DESCRIPTION: Abdoment/Pelvis w/o Contrast CLINICAL HISTORY:48 years Female, RLQ abdominal pain with fever Comparison: October 16, 2015 TECHNIQUE: Contiguous axial images of the abdomen and pelvis were obtained followed by reconstruction images. This exam was performed according to our departmental dose-optimization program, which includes automated exposure control, adjustment of the mA and/or kV according to patient size and/or use of iterative reconstruction technique. FINDINGS: Lung bases: Lung bases are clear. Heart: Visualized heart is within normal limits in size. Liver:Unremarkable. No focal liver lesion. Gallbladder:Cholecystectomy clips seen in gallbladder fossa. Spleen:Unremarkable Pancreas: Diffuse fatty atrophy of the head and neck Adrenal glands:Within normal limits. Kidneys/ureters:Within normal limits Bladder:Unremarkable. Pelvic organs: No acute abnormality Vascular structures: within normal limits Peritoneum: No free fluid. Lymph nodes: No abnormal lymph nodes. Stomach/small bowel/colon: Stomach is unremarkable. Small bowel is unremarkable. Scattered colonic diverticula. No evicence of diverticulitis. Appendix: No evidence of appendicitis. Bones: No acute osseous abnormality. Moderate severe degenerative disc changes L4-5. Soft tissues: Unremarkable.. IMPRESSION: No acute intra-abdominal abnormality. Laboratory Results WBC 7.7 K/mm3 (4.8-10.8) 07/06/18 19:10 RBC 4.78 M/mm3 (4.20-5.40) 07/06/18 19:10 Hgb 13.6 gm/dL (12.0-16.0) 07/06/18 19:10 Hct 40.5 % (36.0-47.0) 07/06/18 19:10 MCV 84.7 fl (81.0-99.0) 07/06/18 19:10 MCH 28.5 pg (27.0-31.0) 07/06/18 19:10 MCHC 33.6 g/dL (33.0-37.0) 07/06/18 19:10 RDW 13.3 % (11.5-14.5) 07/06/18 19:10 Plt Count 291 K/mm3 (130-400) 07/06/18 19:10 MPV 7.2 fl (7.40-10.4) L 07/06/18 19:10 Absolute Neuts (auto) 4.70 K/uL (1.8-6.8) 07/06/18 19:10 Absolute Lymphs (auto) 2.20 K/uL (1.0-3.4) 07/06/18 19:10 Absolute Monos (auto) 0.50 K/uL (0.2-0.8) 07/06/18 19:10 Absolute Eos (auto) 0.20 K/uL (0.0-0.4) 07/06/18 19:10 Absolute Basos (auto) 0.10 K/uL (0.0-0.1) 07/06/18 19:10 Neutrophils % 61.0 % (42.0-78.0) 07/06/18 19:10 Lymphocytes % 28.6 % (20.0-50.0) 07/06/18 19:10 Monocytes % 6.7 % (2.0-9.0) 07/06/18 19:10 Eosinophils % 3.0 % (1.0-5.0) 07/06/18 19:10 Basophils % 0.7 % (0.0-2.0) 07/06/18 19:10 Sodium 141 mmol/L (135-145) 07/06/18 19:10 Potassium 3.5 mmol/L (3.6-5.0) L 07/06/18 19:10 Chloride 104 mmol/L (101-111) 07/06/18 19:10 Carbon Dioxide 30 mmol/L (21-31) 07/06/18 19:10 Anion Gap 10.5 (12-18) L 07/06/18 19:10 BUN 12 mg/dL (7-18) 07/06/18 19:10 Creatinine 0.78 mg/dL (0.6-1.3) 07/06/18 19:10 BUN/Creatinine Ratio 15.4 (10-20) 07/06/18 19:10 Random Glucose 117 mg/dL (70-105) H 07/06/18 19:10 Serum Osmolality 282.0 mOsm/L (275-295) 07/06/18 19:10 Calcium 9.7 mg/dL (8.4-10.2) 07/06/18 19:10 Total Bilirubin 0.2 mg/dL (0.2-1.0) 07/06/18 19:10 AST 19 IU/L (10-42) 07/06/18 19:10 ALT 17 IU/L (10-60) 07/06/18 19:10 Alkaline Phosphatase 106 IU/L (42-121) 07/06/18 19:10 Serum Total Protein 8.4 gm/dL (6.4-8.2) H 07/06/18 19:10 Albumin 4.6 g/dl (3.2-5.5) 07/06/18 19:10 Globulin 3.8 gm/dL (2.3-3.5) H 07/06/18 19:10 Albumin/Globulin Ratio 1.2 (1.1-1.9) 07/06/18 19:10 Amylase 53 U/L (28-100) 07/06/18 19:10 Lipase 28 U/L (22-51) 07/06/18 19:10 Urine Color Yellow (Yellow) 07/06/18 19:00 Urine Appearance Clear (Clear) 07/06/18 19:00 Urine pH 5.5 (4.5-7.8) 07/06/18 19:00 Ur Specific [place] >= 1.030 (1.005-1.030) 07/06/18 19:00 Urine Protein Negative mg/dL 07/06/18 19:00 Urine Glucose (UA) Negative mg/dL (Negative) 07/06/18 19:00 Urine Ketones Negative mg/dL (NEGATIVE) 07/06/18 19:00 Urine Blood Negative (Negative) 07/06/18 19:00 Urine Nitrite Negative 07/06/18 19:00 Urine Bilirubin Negative (NEGATIVE) 07/06/18 19:00 Urine Urobilinogen 0.2 mg/dL (0.2-1.0) 07/06/18 19:00 Ur Leukocyte Esterase Negative (Negative) 07/06/18 19:00 Urine RBC 1-3 /hpf 07/06/18 19:00 Urine WBC 0-1 /hpf 07/06/18 19:00 Ur Epithelial Cells 0 /hpf 07/06/18 19:00 Urine Bacteria 1+ 07/06/18 19:00 Urine Mucus Trace 07/06/18 19:00 Departure - Departure Clinical Impression: Gastroenteritis Disposition: Discharge to Home or Self Care Condition: Good Departure Forms: ED Discharge - Pt. Copy, Patient Portal Self Enrollment Instructions: DI for Abdominal Pain-Adult Referrals: SERGEY LINK [Primary Care Provider] - 1-2 Weeks Home Medications: Ambulatory Orders Rabeprazole Sodium [Aciphex] 20 mg PO DAILY 07/06/18 raNITIdine HCL [Zantac] 150 mg PO BID 07/06/18 Additional Instructions: return to ER for increased pain, intractable emesis. Slow return to normal diet.
--- NOTE | 2018-07-06 19:26 | CT ---
EXAM DESCRIPTION: Abdoment/Pelvis w/o Contrast CLINICAL HISTORY:48 years Female, RLQ abdominal pain with fever Comparison: October 16, 2015 TECHNIQUE: Contiguous axial images of the abdomen and pelvis were obtained followed by reconstruction images. This exam was performed according to our departmental dose-optimization program, which includes automated exposure control, adjustment of the mA and/or kV according to patient size and/or use of iterative reconstruction technique. FINDINGS: Lung bases: Lung bases are clear. Heart: Visualized heart is within normal limits in size. Liver:Unremarkable. No focal liver lesion. Gallbladder:Cholecystectomy clips seen in gallbladder fossa. Spleen:Unremarkable Pancreas: Diffuse fatty atrophy of the head and neck Adrenal glands:Within normal limits. Kidneys/ureters:Within normal limits Bladder:Unremarkable. Pelvic organs: No acute abnormality Vascular structures: within normal limits Peritoneum: No free fluid. Lymph nodes: No abnormal lymph nodes. Stomach/small bowel/colon: Stomach is unremarkable. Small bowel is unremarkable. Scattered colonic diverticula. No evicence of diverticulitis. Appendix: No evidence of appendicitis. Bones: No acute osseous abnormality. Moderate severe degenerative disc changes L4-5. Soft tissues: Unremarkable.. IMPRESSION: No acute intra-abdominal abnormality. 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
[2018-07-06] MEDS ORDERED: MEPERIDINE HCL 50 MG/ML VIAL IV ONE (19:55)
[2018-07-06 20:58] VITALS: BP 137/84
== END 2018-07-06 20:55 | disposition home or self-care (01) ==
LOC: ER 18:24
DX: K52.9 Noninfective gastroenteritis and colitis, unspecified (principal); K21.9 Gastro-esophageal reflux disease without esophagitis; Z90.49 Acquired absence of other specified parts of digestive tract
CPT/HCPCS: 36415; 74176; 80053; 81001; 82150; 83690; 85025; J1885; J2175; J7030

== ENCOUNTER 2019-01-28 19:28 | Emergency (ER) | payer BC, SELFPAY ==
[2019-01-28] MEDS ORDERED: ASPIRIN TABLET 325 MG TAB PO ONE (20:09)
--- NOTE | 2019-01-28 20:26 | RAD ---
EXAM: XR Chest, 1 View CLINICAL HISTORY: 48 years old and is Female; Chest pain TECHNIQUE: Frontal view of the chest. COMPARISON: 03/27/2018 FINDINGS: Limitations: None. Lungs: Unremarkable. No consolidation. Pleural space: Unremarkable. No pneumothorax. Heart: Unremarkable. No cardiomegaly. Mediastinum: Unremarkable. Bones/joints: Unremarkable. IMPRESSION: No abnormality noted. Electronically signed by: Angella Toledo MD 01/28/2019 8:24 PM CDT
[2019-01-28] MEDS ORDERED: ALUM & MAG HYDROX-SIMETHICONE 30 ML, LIDOCAINE VISCOUS 2% 15 ML PO ONE ×2 (20:51)
[2019-01-28] MEDS ORDERED: SUCRALFATE 1 GM/10 ML 1 GM UD PO ONE (20:51)
[2019-01-28] MEDS ORDERED: PANTOPRAZOLE SOD SUSP 40 MG PCKT PO ONE (20:52)
[2019-01-28] MEDS ORDERED: LIDOCAINE HCL 2% (MOUTH-THROAT) 15 ML UD ONE (20:59)
--- NOTE | 2019-01-28 20:59 | ED.PDOC ---
History of Present Illness - General Chief Complaint: Chest Pain/SC Stated Complaint: chest pain, SOB Time Seen by Provider: 01/28/19 19:39 Source: patient Exam Limitations: no limitations - History of Present Illness Initial Comments: Elizabet Hernandez 38 y/o female came to ER with constant sharp substernal pain for the last 3 days.No SOB,diaphoresis,able to eat,no N/V.Had been seen by GI specialist dx with PUD was place on 3 anti ulcer medications and had recent gi follow up scheduled for acid studies.Had similar symptoms in the past 2018 all cardiac labs were normal. Timing/Duration: other - 3 days Improving Factors: nothing Worsening Factors: nothing Associated Symptoms: other - see hpi Allergies/Adverse Reactions: Allergies Penicillins Allergy (Verified 07/06/18 18:35) Rash Prochlorperazine [From Compazine] Allergy (Verified 07/06/18 18:35) Other generalized hot feeling all over body Sulfa Antibiotics Allergy (Verified 07/06/18 18:35) Other generalized hot feeling all over body Home Medications: Ambulatory Orders raNITIdine HCL [Zantac] 150 mg PO BID 07/06/18 Chlordiazepoxide HCl-Clidinium [Librax] 1 ea PO BID #14 cap 01/28/19 Review of Systems - Review of Systems Constitutional: States: no symptoms reported EENTM: States: no symptoms reported Cardiology: States: see HPI Gastrointestinal/Abdominal: States: see HPI Genitourinary: States: no symptoms reported Musculoskeletal: States: no symptoms reported All other Systems: Reviewed and Negative, No Change from Baseline Past Medical History (General) - Patient Medical History Hx Seizures: No Hx Stroke: No Hx Dementia: No Hx Asthma: No Hx of COPD: No Hx Cardiac Disorders: No Hx Congestive Heart Failure: No Hx Pacemaker: No Hx Hypertension: No Hx Thyroid Disease: No Hx Diabetes: No Hx Gastroesophageal Reflux: Yes Hx Renal Disease: No Hx Cancer: No Hx of HIV: No Hx Hepatitis C: No Hx MRSA: No Surgical History: tonsillectomy, other - hysterectomy;EGD - Vaccination History Hx Tetanus, Diphtheria Vaccination: Yes Hx Influenza Vaccination: Yes - 2018 Hx Pneumococcal Vaccination: No - Social History Hx Tobacco Use: No Hx Chewing Tobacco Use: No Hx Alcohol Use: No Hx Substance Use: No Hx Substance Use Treatment: No Hx Depression: No Hx Physical Abuse: No Hx Emotional Abuse: No Hx Suspected Abuse: No - Female History Patient : No Family Medical History - Family History Mother Living Status: Hx Family Congestive Heart Failure: Yes Hx Family Hypertension: Yes Hx Family Stroke: Yes Hx Cardiac Disease: Yes Hx Family Diabetes: Yes - mom/sister Father Living Status: Hx Family Congestive Heart Failure: Yes Physical Exam - Physical Exam General Appearance: Alert, Comfortable, No apparent distress Eye Exam: bilateral normal Ears, Nose, Throat: hearing grossly normal, normal ENT inspection, normal pharynx Neck: supple, normal inspection Respiratory: chest non-tender, lungs clear, normal breath sounds Cardiovascular/Chest: normal peripheral pulses, regular rate, rhythm, no murmur Peripheral Pulses: radial,right: 2+, radial,left: 2+ Gastrointestinal/Abdominal: non tender, soft, no organomegaly Extremity: no pedal edema, no calf tenderness Neurologic: alert, oriented x 3 Skin Exam: normal color, warm/dry Progress - Progress Progress: 01/28/19 21:00 Vital Signs - 8 hr 01/28/19 01/28/19 01/28/19 19:34 20:11 20:45 Temperature 98.2 F Pulse Rate [ 81 72 76 Left Brachial] Respiratory 20 20 Rate Blood Pressure 157/97 128/86 [Left Arm] O2 Sat by Pulse 96 99 Oximetry - Results/Orders Results/Orders: Laboratory Tests 01/28/19 01/28/19 01/28/19 19:48 19:48 19:48 WBC 9.2 RBC 4.39 Hgb 12.4 Hct 37.1 MCV 84.6 MCH 28.2 MCHC 33.3 RDW 13.6 Plt Count 270 MPV 7.4 Absolute Neuts (auto) 5.90 Absolute Lymphs (auto) 2.40 Absolute Monos (auto) 0.70 Absolute Eos (auto) 0.20 Absolute Basos (auto) 0.10 Neutrophils % 64.0 Lymphocytes % 25.5 Monocytes % 7.7 Eosinophils % 2.1 Basophils % 0.7 PT 9.7 INR 0.97 PTT (SP) 25.4 D-Dimer, Quantitative Sodium Potassium Chloride Carbon Dioxide Anion Gap BUN Creatinine BUN/Creatinine Ratio Random Glucose Serum Osmolality Calcium Magnesium 2.0 Total Bilirubin AST ALT Alkaline Phosphatase Creatine Kinase 122 CK-MB (CK-2) 2.0 CK-MB (CK-2) % Not Reportable Troponin I < 0.02 Serum Total Protein Albumin Globulin Albumin/Globulin Ratio Urine Color Urine Appearance Urine pH Ur Specific [place] Urine Protein Urine Glucose (UA) Urine Ketones Urine Blood Urine Nitrite Urine Bilirubin Urine Urobilinogen Ur Leukocyte Esterase Urine RBC Urine WBC Ur Epithelial Cells Urine Bacteria 01/28/19 01/28/19 01/28/19 19:48 21:18 22:08 WBC RBC Hgb Hct MCV MCH MCHC RDW Plt Count MPV Absolute Neuts (auto) Absolute Lymphs (auto) Absolute Monos (auto) Absolute Eos (auto) Absolute Basos (auto) Neutrophils % Lymphocytes % Monocytes % Eosinophils % Basophils % PT INR PTT (SP) D-Dimer, Quantitative Sodium 137 Potassium 3.5 L Chloride 103 Carbon Dioxide 25 Anion Gap 12.5 BUN 14 Creatinine 0.75 BUN/Creatinine Ratio 18.7 Random Glucose 118 H Serum Osmolality 275.4 Calcium 9.5 Magnesium Total Bilirubin 0.4 AST 24 ALT 19 Alkaline Phosphatase 78 Creatine Kinase CK-MB (CK-2) CK-MB (CK-2) % Troponin I < 0.02 Serum Total Protein 7.6 Albumin 4.2 Globulin 3.4 Albumin/Globulin Ratio 1.2 Urine Color Yellow Urine Appearance Clear Urine pH 5.5 Ur Specific [place] 1.010 Urine Protein Negative Urine Glucose (UA) Negative Urine Ketones Negative Urine Blood Negative Urine Nitrite Negative Urine Bilirubin Negative Urine Urobilinogen 0.2 Ur Leukocyte Esterase Negative Urine RBC 0 Urine WBC 0 Ur Epithelial Cells 1-3 Urine Bacteria 0 01/28/19 Unknown WBC RBC Hgb Hct MCV MCH MCHC RDW Plt Count MPV Absolute Neuts (auto) Absolute Lymphs (auto) Absolute Monos (auto) Absolute Eos (auto) Absolute Basos (auto) Neutrophils % Lymphocytes % Monocytes % Eosinophils % Basophils % PT INR PTT (SP) D-Dimer, Quantitative 0.73 H* Sodium Potassium Chloride Carbon Dioxide Anion Gap BUN Creatinine BUN/Creatinine Ratio Random Glucose Serum Osmolality Calcium Magnesium Total Bilirubin AST ALT Alkaline Phosphatase Creatine Kinase CK-MB (CK-2) CK-MB (CK-2) % Troponin I Serum Total Protein Albumin Globulin Albumin/Globulin Ratio Urine Color Urine Appearance Urine pH Ur Specific [place] Urine Protein Urine Glucose (UA) Urine Ketones Urine Blood Urine Nitrite Urine Bilirubin Urine Urobilinogen Ur Leukocyte Esterase Urine RBC Urine WBC Ur Epithelial Cells Urine Bacteria Discuss all test result with patient that she needs to follow up with primary Md for cardiology referral also - EKG/XRAY/CT EKG: Sinus, no ST T wave changes, Unchanged from - 06 Mar 2018 Comments: HR-77 XRAY: chest - no acute abnormality CT Ordered: Yes - [id number] pulmonary embolus Departure - Departure Clinical Impression: Atypical chest pain, History of peptic ulcer disease Time of Disposition: 23:28 Disposition: Discharge to Home or Self Care Condition: Good Departure Forms: ED Discharge - Pt. Copy, Patient Portal Self Enrollment Instructions: DI for Chest Pain Referrals: SERGEY LINK [Primary Care Provider] - 1-2 Weeks Prescriptions: Chlordiazepoxide HCl-Clidinium [Librax] 1 ea PO BID #14 cap Home Medications: Ambulatory Orders raNITIdine HCL [Zantac] 150 mg PO BID 07/06/18 Chlordiazepoxide HCl-Clidinium [Librax] 1 ea PO BID #14 cap 01/28/19 Additional Instructions: Need to resume taking Carafate 2 tablets am/pm ;continue with all home medications;Follow up with primary Md Dr. Link for referral also to labor relations specialist Return to emergency room as needed
[2019-01-28] MEDS ORDERED: ALUM & MAG HYDROX-SIMETHICONE 30 ML UD ONE (21:00)
--- NOTE | 2019-01-28 22:48 | CT ---
EXAM DESCRIPTION: CTA of the chest per PE protocol with contrast. CLINICAL HISTORY: chest pain/elevated d- dimer COMPARISON: None Available. TECHNIQUE: CTA of the chest obtained following the uncomplicated intravenous administration of iodinated contrast.. 3-D/MIP reformatted images of the chest available for evaluation. DLP: 645.97 mGycm FINDINGS: Chest: Pulmonary arteries: Contrast bolus is adequate.No filling defects identified in the pulmonary arteries to suggest pulmonary embolus. Thyroid:No abnormalities of the visualized thyroid. Great Vessels:Great vessels have normal anatomic configuration. Thoracic Aorta: Ectasia of the ascending thoracic aorta. Heart: Coronary artery atherosclerosis. No significant pericardial effusion or cardiomegaly. Lymph Nodes:No enlarged mediastinal lymph nodes identified. Esophagus:No abnormalities of the esophagus identified. Other:No additional findings. Lungs:No airspace consolidation identified. Scattered groundglass opacities likely related to air trapping from low lung volumes. Pleura:No pleural effusion or pneumothorax. Trachea/Airways:No abnormalities of the visualized trachea or airways. Bones: Degenerative change of the spine. Upper Abdomen:Limited images of the upper abdomen demonstrate no definite abnormalities of visualized portions of the pancreas, spleen, adrenal glands, or kidneys. Decreased density of the liver. Prior cholecystectomy. IMPRESSION: 1. No pulmonary embolus identified. 2. Coronary artery atherosclerosis. 3. Hepatic steatosis. This exam was performed according to our departmental dose-optimization program, which includes automated exposure control, adjustment of the mA and/or kV according to patient size and/or use of iterative reconstruction technique. Electronically signed by: Michele Tinoco 01/28/2019 10:46 PM CDT
[2019-01-28] MEDS ORDERED: MORPHINE SULFATE INJ 10 MG/ML VIAL IV ONE (23:31)
[2019-01-28] MEDS ORDERED: PROMETHAZINE HCL INJ 25 MG in SODIUM CHLORIDE 0.9% 50ML 50 ML IVPB ONE (23:31)
[2019-01-28] MEDS ORDERED: PROMETHAZINE HCL INJ 25 MG/ML VIAL ONE (23:34)
[2019-01-28] MEDS ORDERED: SODIUM CHLORIDE 0.9% 50ML 50 ML ONE (23:35)
[2019-01-29 00:11] VITALS: BP 136/88; TEMP 97.6; O2SAT 94
== END 2019-01-28 23:56 | disposition home or self-care (01) ==
LOC: ER 19:28
DX: R07.89 Other chest pain (principal); K21.9 Gastro-esophageal reflux disease without esophagitis; Z87.11 Personal history of peptic ulcer disease; Z79.899 Other long term (current) drug therapy; Z88.0 Allergy status to penicillin; Z88.8 Allergy status to other drugs, medicaments and biological substances; Z88.2 Allergy status to sulfonamides
CPT/HCPCS: 36415; 71045; 71275; 80053; 81001; 82550; 82553; 83735; 84484; 85025; 85379; 85610; 85730; 93005; A4216; J2270; J2550

== ENCOUNTER → 2019-07-15 | Outpatient (CLI) | payer BC | LOC: ECHO 10:47 | PROVIDERS: ATTEND Emergency Medicine | DX: R01.1 Cardiac murmur, unspecified (principal) ==

== ENCOUNTER 2019-11-09 14:46 | Emergency (ER) | payer BC ==
--- NOTE | 2019-11-09 15:12 | ED.PDOC ---
History of Present Illness - General Chief Complaint: General Stated Complaint: reaction to crestor Time Seen by Provider: 11/09/19 15:11 Source: patient Exam Limitations: no limitations - History of Present Illness Initial Comments: 49 yo F who presents for nausea, decreased appetite, diffuse myalgias, fatigue since starting cholesterol medications. Pt states she had a stress test in September and there was concern for a plaque. She was started on lipitor on October 30, she had some side effects including insomnia and diarrhea. She was switched to Crestor on Sunday, she had one dose and has not had any since that time. She reports continued sx and therefore presented to the ED. Denies f/c, cough, congestion, sore throat, CP, SOB, abd pain, vomiting, current diarrhea, urinary sx, weakness, numbness, GAGNON, neck pain, change in vision. Allergies/Adverse Reactions: Allergies Penicillins Allergy (Verified 07/06/18 18:35) Rash Prochlorperazine [From Compazine] Allergy (Verified 07/06/18 18:35) Other generalized hot feeling all over body Sulfa Antibiotics Allergy (Verified 07/06/18 18:35) Other generalized hot feeling all over body Home Medications: Ambulatory Orders ALPRAZolam [Xanax] 0.25 mg PO BEDTIME PRN 11/09/19 Cyclobenzaprine HCl [Flexeril] 10 mg PO BEDTIME PRN 11/09/19 Esomeprazole Magnesium 40 mg PO DAILY 11/09/19 Metformin HCl [Fortamet] 500 mg PO BID 11/09/19 Ondansetron Odt [Zofran ODT] 4 mg PO Q6H PRN #6 tab 11/09/19 Review of Systems - Review of Systems Constitutional: States: other - insomnia, fatigue. Denies: chills, fever EENTM: Denies: blurred vision, double vision, nose congestion, throat pain Respiratory: Denies: cough, orthopnea, short of breath Cardiology: Denies: chest pain, edema, palpitations, syncope Gastrointestinal/Abdominal: States: diarrhea, nausea, other - decreased appetite Genitourinary: Denies: dysuria, frequency, hematuria Musculoskeletal: States: muscle pain. Denies: back pain, joint swelling, neck pain Skin: Denies: lesions, rash Neurological: Denies: headache, numbness, weakness Endocrine: Denies: increased thirst, increased urine Hematologic/Lymphatic: Denies: easy bleeding, easy bruising Past Medical History (General) - Patient Medical History Hx Seizures: No Hx Stroke: No Hx Dementia: No Hx Asthma: No Hx of COPD: No Hx Cardiac Disorders: Yes - bicuspid aorta Hx Congestive Heart Failure: No Hx Pacemaker: No Hx Hypertension: No Hx Thyroid Disease: No Hx Diabetes: Yes - takes metformin Hx Gastroesophageal Reflux: Yes Hx Renal Disease: No Hx Cancer: No Hx of HIV: No Hx Hepatitis C: No Hx MRSA: No Surgical History: cholecystectomy, tonsillectomy, Hysterectomy - Vaccination History Hx Tetanus, Diphtheria Vaccination: Yes Hx Influenza Vaccination: Yes - 2018 Hx Pneumococcal Vaccination: No - Social History Hx Tobacco Use: No Hx Chewing Tobacco Use: No Hx Alcohol Use: No Hx Substance Use: No Hx Substance Use Treatment: No Hx Depression: No Hx Physical Abuse: No Hx Emotional Abuse: No Hx Suspected Abuse: No - Female History Patient : No Family Medical History - Family History Mother Living Status: Hx Family Congestive Heart Failure: Yes Hx Family Hypertension: Yes Hx Family Stroke: Yes Hx Cardiac Disease: Yes Hx Family Diabetes: Yes - mom/sister Father Living Status: Hx Family Congestive Heart Failure: Yes Physical Exam - Physical Exam General Appearance: Alert, Comfortable, No apparent distress, Well Developed, Well Nourished Eye Exam: bilateral normal Ears, Nose, Throat: hearing grossly normal, normal ENT inspection, normal pharynx Neck: non-tender, full range of motion, supple, normal inspection Respiratory: chest non-tender, lungs clear, normal breath sounds, no respiratory distress, no accessory muscle use Cardiovascular/Chest: normal peripheral pulses, regular rate, rhythm, no edema, no gallop, no JVD, no murmur Peripheral Pulses: radial,right: 2+, radial,left: 2+ Gastrointestinal/Abdominal: non tender, soft, no organomegaly, no pulsatile mass Extremity: normal range of motion, non-tender, normal inspection, no pedal edema, no calf tenderness, normal capillary refill Neurologic: drug abuse worker II-XII nml as tested, no motor/sensory deficits, alert, normal mood/affect, oriented x 3 Skin Exam: normal color, warm/dry Progress - Progress Progress: 11/09/19 16:39 I have explained and reviewed all results with the pt. She understands to call her auto body builder apprentice tomorrow for further direction on medication regimen and to avoid statins at this time. I explained that emergent conditions may arise and to return to the ER for new, worsening, or any persistent conditions. I've explained the importance of f/u for recheck. All questions and concerns ad dressed at this time. Pt understands and agrees with plan. Pt well appearing, NAD, is stable for discharge. Sara Huff MD Emergency Medicine Physician Billing Number [id number] - Results/Orders Results/Orders: 11/09/19 15:45 EKG STAT Laboratory Results - last 24 hr 11/09/19 11/09/19 11/09/19 15:26 15:26 15:41 WBC 7.8 RBC 4.60 Hgb 12.8 Hct 38.1 MCV 82.8 MCH 27.9 MCHC 33.7 RDW 13.3 Plt Count 281 MPV 7.3 L Absolute Neuts (auto) 5.10 Absolute Lymphs (auto) 2.10 Absolute Monos (auto) 0.50 Absolute Eos (auto) 0.10 Absolute Basos (auto) 0.10 Neutrophils % 64.9 Lymphocytes % 27.3 Monocytes % 6.1 Eosinophils % 0.9 L Basophils % 0.8 Sodium 139 Potassium 3.6 Chloride 103 Carbon Dioxide 29 Anion Gap 10.6 L BUN 9 Creatinine 0.75 BUN/Creatinine Ratio 12.0 Random Glucose 106 H Serum Osmolality 276.6 Calcium 9.4 Total Bilirubin 0.3 AST 31 ALT 28 Alkaline Phosphatase 69 Creatine Kinase Serum Total Protein 8.0 Albumin 4.5 Globulin 3.5 Albumin/Globulin Ratio 1.3 Urine Color Yellow Urine Appearance Clear Urine pH 7.0 Ur Specific [place] 1.015 Urine Protein Negative Urine Glucose (UA) Negative Urine Ketones Negative Urine Blood Negative Urine Nitrite Negative Urine Bilirubin Negative Urine Urobilinogen 0.2 Ur Leukocyte Esterase Negative Urine RBC 0 Urine WBC 0 Ur Epithelial Cells 3-5 Urine Bacteria 0 11/09/19 Unknown WBC RBC Hgb Hct MCV MCH MCHC RDW Plt Count MPV Absolute Neuts (auto) Absolute Lymphs (auto) Absolute Monos (auto) Absolute Eos (auto) Absolute Basos (auto) Neutrophils % Lymphocytes % Monocytes % Eosinophils % Basophils % Sodium Potassium Chloride Carbon Dioxide Anion Gap BUN Creatinine BUN/Creatinine Ratio Random Glucose Serum Osmolality Calcium Total Bilirubin AST ALT Alkaline Phosphatase Creatine Kinase 94 Serum Total Protein Albumin Globulin Albumin/Globulin Ratio Urine Color Urine Appearance Urine pH Ur Specific [place] Urine Protein Urine Glucose (UA) Urine Ketones Urine Blood Urine Nitrite Urine Bilirubin Urine Urobilinogen Ur Leukocyte Esterase Urine RBC Urine WBC Ur Epithelial Cells Urine Bacteria Vital Signs (72 hours) 11/09/19 11/09/19 11/09/19 14:53 15:48 16:00 Temperature 97.4 F L 97.5 F L Pulse Rate [ 76 81 74 left brachial] Respiratory 20 20 16 Rate Blood Pressure 152/99 149/79 151/84 [left barchial] O2 Sat by Pulse 99 98 99 Oximetry 11/09/19 16:48 Temperature Pulse Rate [ 74 left brachial] Respiratory 16 Rate Blood Pressure 131/79 [left barchial] O2 Sat by Pulse 98 Oximetry - EKG/XRAY/CT EKG: no ST T wave changes Comments: NRS, rate 71 Departure - Departure Clinical Impression: Medication side effects Time of Disposition: 16:37 Disposition: Discharge to Home or Self Care Condition: Fair Departure Forms: ED Discharge - Pt. Copy, Patient Portal Self Enrollment Referrals: SERGEY LINK [Primary Care Provider] - 1-2 Days Prescriptions: Ondansetron Odt [Zofran ODT] 4 mg PO Q6H PRN #6 tab PRN Reason: Nausea Home Medications: Ambulatory Orders ALPRAZolam [Xanax] 0.25 mg PO BEDTIME PRN 11/09/19 Cyclobenzaprine HCl [Flexeril] 10 mg PO BEDTIME PRN 11/09/19 Esomeprazole Magnesium 40 mg PO DAILY 11/09/19 Metformin HCl [Fortamet] 500 mg PO BID 11/09/19 Ondansetron Odt [Zofran ODT] 4 mg PO Q6H PRN #6 tab 11/09/19 Additional Instructions: Follow up: [facility] As needed, if symptoms worsen Your auto body builder apprentice, call tomorrow for further discussion on medication possibilities
[2019-11-09] MEDS ORDERED: ONDANSETRON INJ 4 MG/2 ML VIAL IV ONE (15:22)
[2019-11-09] MEDS ORDERED: SODIUM CHLORIDE 0.9% 500ML 500 ML IVS ONE (15:22)
[2019-11-09 16:27] VITALS: TEMP 97.5
[2019-11-09 16:52] VITALS: BP 131/79; O2SAT 98
== END 2019-11-09 16:48 | disposition home or self-care (01) ==
LOC: ER 14:46
DX: T46.6X5A Adverse effect of antihyperlipidemic and antiarteriosclerotic drugs, initial encounter (principal); E11.9 Type 2 diabetes mellitus without complications; Z79.899 Other long term (current) drug therapy; Y92.9 Unspecified place or not applicable; R11.0 Nausea; R53.83 Other fatigue
CPT/HCPCS: 36415; 80053; 81001; 82550; 85025; 93005; J2405; J7040

== ENCOUNTER → 2019-12-01 | Outpatient (CLI) | payer BC ==
--- NOTE | 2019-12-02 16:43 | MAM ---
EXAM DESCRIPTION: 3D Screening BILATERAL : Digital Mammography. CLINICAL HISTORY: 49 years Female SCREENING . No complaints. No personal history of breast cancer. No family history breast cancer. Menarche age 10. Childbirth age 15. Menopause age 22. Benign left breast cyst aspiration and biopsy. No HRT. COMPARISON: Baseline study at this facility.. No prior reports available. TECHNIQUE: Bilateral CC and MLO projection full-field images, digital tomosynthesis mammographic technique. Bilateral digital 2-D full-field MLO images. CAD available for 2-D images. FINDINGS: The breast parenchymal density pattern is: Almost entirely fatty. No skin thickening or nipple retraction. Bilateral skin mole markers. Solitary microcalcifications. Right axillary lymph node. Oil cyst or fat necrosis central left breast. No new focal, stellate mass or density, focal asymmetry , and no suspicious microcalcifications . IMPRESSION: Benign exam. BIRAD CATEGORY: 2 BENIGN FINDINGS. RECOMMENDATIONS: FOLLOW UP: Routine digital bilateral mammographic screening, one year interval from November 2019. Written communication explaining the IMPRESSION and follow-up, will be mailed to the patient and referring health care provider. According to the [employer], yearly mammograms are recommended starting at age 40 and continuing as long as a woman is in good health. Any breast change noted on a breast self-exam should be reported promptly to the patient's healthcare provider. Breast MRI is recommended for women with an approximately 20-25% or greater lifetime risk of breast cancer, including women with a strong family history of breast or ovarian cancer and women who have been treated for Hodgkin's disease. A negative mammographic report should not delay tissue diagnosis in patients with significant clinical history or physical findings. Extremely dense breast tissue limits the sensitivity of digital mammography. Electronically signed by: Andres Solis MD 12/02/2019 4:41 PM CDT
== END ==
LOC: MAMMO 15:00
PROVIDERS: ATTEND Emergency Medicine
DX: Z12.31 Encounter for screening mammogram for malignant neoplasm of breast (principal)

== ENCOUNTER 2020-02-12 06:50 | Emergency (ER) | payer BC ==
[2020-02-12] MEDS ORDERED: ONDANSETRON ODT 8 MG TAB SL ONE (07:06)
[2020-02-12] MEDS ORDERED: SODIUM CHLORIDE 0.9% 1000ML 1,000 ML IVS ONE ×2 (07:19→09:49)
[2020-02-12] MEDS ORDERED: IBUPROFEN 200 MG TAB PO ONE (07:31)
[2020-02-12] MEDS ORDERED: SUCRALFATE 1 GM/10 ML 1 GM UD PO ONE (07:31)
--- NOTE | 2020-02-12 08:42 | RAD ---
EXAM DESCRIPTION: Abdomen Series CLINICAL HISTORY: 50 years Female, nvd, fever, sore throat COMPARISON: Ultrasound abdomen January 18, 2018, CT abdomen and pelvis July 16, 2018 FINDINGS: Chest x-ray shows prominent heart without congestive failure. No consolidating infiltrate. No free air under the diaphragm. Upright and supine x-ray views of the abdomen show no abnormal air-fluid levels. Surgical clips in the right upper quadrant. No visceromegaly or mass. S-shaped scoliotic curvature of the thoracolumbar spine. Normal bowel gas pattern. Tiny calcifications in the right pelvis along the right side of the sacrum is indeterminate. Correlating with previous CT July 06, 2018, a dense calcification was seen in the right pelvis at that time unassociated with the appendix probably calcified lymph node. IMPRESSION: No acute process is identified in the chest or abdomen. Electronically signed by: Eric Johansen MD 02/12/2020 8:40 AM CDT
[2020-02-12] MEDS ORDERED: ALUM & MAG HYDROX-SIMETHICONE 30 ML, LIDOCAINE VISCOUS 2% 15 ML PO ONE ×2 (09:29)
[2020-02-12] MEDS ORDERED: SCOPOLAMINE PATCH 1.5MG 1 EA TD ONE (09:49)
[2020-02-12] MEDS ORDERED: SODIUM CHLORIDE 0.9% 1000ML 1,000 ML ONE (09:51)
[2020-02-12 10:02] VITALS: TEMP 98.3
[2020-02-12] MEDS ORDERED: levoFLOXacin 500 MG TAB PO ONE (10:06)
[2020-02-12] MEDS ORDERED: metroNIDAZOLE 500 MG TAB PO ONE (10:06)
--- NOTE | 2020-02-12 10:18 | ED.PDOC ---
History of Present Illness - General Chief Complaint: General Stated Complaint: cold sweats, back pain, migraine Time Seen by Provider: 02/12/20 07:05 Source: patient Exam Limitations: no limitations - History of Present Illness Initial Comments: The patient is a 50-year-old female presenting to the emergency room secondary to fever, sore throat, abdominal cramping along with multiple episodes of nausea vomiting and diarrhea. The patient does have a history of chronic gastritis and reflux issues. No definite coronavirus exposure. No real shortness of breath. Only chest pain is when the patient is vomiting. No syncope but she does feel weak. No rash. Mild headache. The patient has had diverticulitis in the past. Timing/Duration: other Severity: moderate Improving Factors: nothing Worsening Factors: eating Associated Symptoms: diaphoresis, fever/chills, loss of appetite, malaise, nausea/vomiting Allergies/Adverse Reactions: Allergies Penicillins Allergy (Verified 02/12/20 07:06) Rash Prochlorperazine [From Compazine] Allergy (Verified 02/12/20 07:06) Other generalized hot feeling all over body Sulfa Antibiotics Allergy (Verified 02/12/20 07:06) Other generalized hot feeling all over body Home Medications: Ambulatory Orders ALPRAZolam [Xanax] 0.25 mg PO BEDTIME PRN 11/09/19 Cyclobenzaprine HCl [Flexeril] 10 mg PO BEDTIME PRN 11/09/19 Esomeprazole Magnesium 40 mg PO DAILY 11/09/19 Metformin HCl [Fortamet] 500 mg PO BID 11/09/19 Ondansetron Odt [Zofran ODT] 4 mg PO Q6H PRN #6 tab 11/09/19 Metronidazole 500 mg PO TID #20 tab 02/12/20 Ondansetron Odt [Zofran ODT] 4 mg PO Q8HR PRN #5 tab 02/12/20 levoFLOXacin [Levaquin] 500 mg PO DAILY #7 tab 02/12/20 Review of Systems - Review of Systems Constitutional: States: fever, malaise EENTM: States: throat pain Respiratory: States: no symptoms reported Cardiology: States: no symptoms reported Gastrointestinal/Abdominal: States: abdominal pain, diarrhea, nausea, vomiting Genitourinary: States: no symptoms reported Musculoskeletal: States: back pain, muscle pain Skin: States: no symptoms reported Neurological: States: headache Endocrine: States: excessive sweating Hematologic/Lymphatic: States: no symptoms reported All other Systems: No Change from Baseline Past Medical History (General) - Patient Medical History Hx Seizures: No Hx Stroke: No Hx Dementia: No Hx Asthma: No Hx of COPD: No Hx Cardiac Disorders: Yes - bicuspid aortic valve Hx Congestive Heart Failure: No Hx Pacemaker: No Hx Hypertension: No Hx Thyroid Disease: No Hx Diabetes: Yes - takes metformin Hx Gastroesophageal Reflux: Yes Hx Renal Disease: No Hx Cancer: No Hx of HIV: No Hx Hepatitis C: No Hx MRSA: No Surgical History: Hysterectomy - Vaccination History Hx Tetanus, Diphtheria Vaccination: No Hx Influenza Vaccination: Yes Hx Pneumococcal Vaccination: No - Social History Hx Tobacco Use: No Hx Chewing Tobacco Use: No Hx Alcohol Use: No Hx Substance Use: No Hx Substance Use Treatment: No Hx Depression: No Hx Physical Abuse: No Hx Emotional Abuse: No Hx Suspected Abuse: No - Activities of Daily Living Hospice Agency (if applicable):: None - Female History Patient is a Female of Child Bearing Age (10 -59 yrs old): Yes Patient : No Family Medical History - Family History Mother Living Status: Hx Family Congestive Heart Failure: Yes Hx Family Hypertension: Yes Hx Family Stroke: Yes Hx Cardiac Disease: Yes Hx Family Diabetes: Yes - mom/sister Father Living Status: Hx Family Congestive Heart Failure: Yes Physical Exam - Physical Exam General Appearance: Alert, Ill Appearing Eye Exam: bilateral normal Ears, Nose, Throat: hearing grossly normal, normal pharynx Neck: full range of motion, supple Respiratory: lungs clear, normal breath sounds, no respiratory distress, no accessory muscle use Cardiovascular/Chest: normal peripheral pulses, regular rate, rhythm, no edema Peripheral Pulses: radial,right: 2+, radial,left: 2+ Gastrointestinal/Abdominal: soft, other - Diffuse discomfort to palpation. No rebound or peritoneal signs. No obvious new palpable masses. 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, alert, normal mood/affect, oriented x 3 Skin Exam: normal color Comments: Vital Signs - 24 hr 02/12/20 02/12/20 02/12/20 07:33 08:00 09:00 Temperature 101.4 F H 100.9 F H 98.7 F Pulse Rate 73 Pulse Rate [ 75 84 73 brachial] Respiratory 16 16 16 Rate Blood Pressure 174/101 152/84 142/84 [Left Arm] O2 Sat by Pulse 97 98 96 Oximetry 02/12/20 10:00 Temperature 98.3 F Pulse Rate 70 Pulse Rate [ 70 brachial] Respiratory 16 Rate Blood Pressure 137/90 [Left Arm] O2 Sat by Pulse 96 Oximetry Progress - Progress Progress: 02/12/20 10:21 The patient is a 50-year-old female presented emergency room with a constellation of symptoms. Patient has tested positive for strep throat. She will be covered with Levaquin for this due to her penicillin allergy. [place] tionally the patient is going to be covered for the possibility of a mild diverticulitis flare giving her the majority of her GI symptoms with metronidazole additionally. She does need to take both antibiotics above with a little bit of food to help prevent stomach upset. Additionally patient has a scopolamine patch in place to help reduce nausea. If the patient is becoming confused or too drowsy, then the patch needs to be removed. She will be written for some Zofran additionally to help control nausea and vomiting if needed. The patient already has Carafate at home, which she needs to resume taking 4 times daily for the next 2 weeks. She is also continuing her Nexium. She can take [id number] oral Maalox or Mylanta as well to help as needed. She needs to keep her self well-hydrated and maintain a bland diet. She no doubt has some chronic gastritis and reflux issues contributing. She has received 2 L of IV fluids for dehydration. Obviously if the patient is failing to improve with this regimen over the next few days, then re-evaluation and possibly additional work-up would be warranted. 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 I would recommend that she follow-up with her primary care doctor early next week for repeat evaluation otherwise. ER warnings are given. [email or web address] [email or web address] [phone] - Results/Orders Results/Orders: Acute abdominal series appears essentially benign. See report for details. Laboratory Tests 02/12/20 02/12/20 02/12/20 07:10 07:10 07:10 WBC 10.3 RBC 4.63 Hgb 13.1 Hct 38.1 MCV 82.3 MCH 28.2 MCHC 34.3 RDW 13.3 Plt Count 274 MPV 7.6 Absolute Neuts (auto) 8.00 H Absolute Lymphs (auto) 1.60 Absolute Monos (auto) 0.50 Absolute Eos (auto) 0.10 Absolute Basos (auto) 0.00 Neutrophils % 78.1 H Lymphocytes % 16.0 L Monocytes % 4.5 Eosinophils % 1.0 Basophils % 0.4 PT 9.5 INR < 1.00 PTT (SP) 27.2 D-Dimer, Quantitative Cancelled Sodium 136 Potassium 3.5 L Chloride 101 Carbon Dioxide 26 Anion Gap 12.5 BUN 15 Creatinine 0.87 BUN/Creatinine Ratio 17.2 Random Glucose 198 H Serum Osmolality 278.3 Lactic Acid Calcium 9.5 Magnesium 1.7 L Total Bilirubin 0.5 AST 23 ALT 29 Alkaline Phosphatase 89 Creatine Kinase 103 CK-MB (CK-2) 1.9 CK-MB (CK-2) % Not Reportable Troponin I < 0.02 B-Natriuretic Peptide 16.1 Serum Total Protein 8.1 Albumin 4.4 Globulin 3.7 H Albumin/Globulin Ratio 1.2 Amylase 33 Lipase 24 TSH 2.35 Serum HCG, Qual Urine Color Urine Appearance Urine pH Ur Specific Roy Urine Protein Urine Glucose (UA) Urine Ketones Urine Blood Urine Nitrite Urine Bilirubin Urine Urobilinogen Ur Leukocyte Esterase Urine RBC Urine WBC Ur Epithelial Cells Urine Bacteria Group A Strep Rapid 02/12/20 02/12/20 02/12/20 07:10 07:10 07:20 WBC RBC Hgb Hct MCV MCH MCHC RDW Plt Count MPV Absolute Neuts (auto) Absolute Lymphs (auto) Absolute Monos (auto) Absolute Eos (auto) Absolute Basos (auto) Neutrophils % Lymphocytes % Monocytes % Eosinophils % Basophils % PT INR PTT (SP) D-Dimer, Quantitative Sodium Potassium Chloride Carbon Dioxide Anion Gap BUN Creatinine BUN/Creatinine Ratio Random Glucose Serum Osmolality Lactic Acid 1.3 Calcium Magnesium Total Bilirubin AST ALT Alkaline Phosphatase Creatine Kinase CK-MB (CK-2) CK-MB (CK-2) % Troponin I B-Natriuretic Peptide Serum Total Protein Albumin Globulin Albumin/Globulin Ratio Amylase Lipase TSH Serum HCG, Qual Negative Urine Color Urine Appearance Urine pH Ur Specific Roy Urine Protein Urine Glucose (UA) Urine Ketones Urine Blood Urine Nitrite Urine Bilirubin Urine Urobilinogen Ur Leukocyte Esterase Urine RBC Urine WBC Ur Epithelial Cells Urine Bacteria Group A Strep Rapid Positive 02/12/20 08:35 WBC RBC Hgb Hct MCV MCH MCHC RDW Plt Count MPV Absolute Neuts (auto) Absolute Lymphs (auto) Absolute Monos (auto) Absolute Eos (auto) Absolute Basos (auto) Neutrophils % Lymphocytes % Monocytes % Eosinophils % Basophils % PT INR PTT (SP) D-Dimer, Quantitative Sodium Potassium Chloride Carbon Dioxide Anion Gap BUN Creatinine BUN/Creatinine Ratio Random Glucose Serum Osmolality Lactic Acid Calcium Magnesium Total Bilirubin AST ALT Alkaline Phosphatase Creatine Kinase CK-MB (CK-2) CK-MB (CK-2) % Troponin I B-Natriuretic Peptide Serum Total Protein Albumin Globulin Albumin/Globulin Ratio Amylase Lipase TSH Serum HCG, Qual Urine Color Yellow Urine Appearance Clear Urine pH 6.5 Ur Specific Roy 1.010 Urine Protein Negative Urine Glucose (UA) Negative Urine Ketones Negative Urine Blood Negative Urine Nitrite Negative Urine Bilirubin Negative Urine Urobilinogen 0.2 Ur Leukocyte Esterase Negative Urine RBC 0 Urine WBC 0-1 Ur Epithelial Cells 5-10 Urine Bacteria Rare Group A Strep Rapid I am told that the respiratory PCR is negative. No coronavirus. Rapid strep is positive. Departure - Departure Clinical Impression: Strep throat, Diverticulitis, Dehydration Chronic gastritis Qualifiers: Gastritis type: unspecified gastritis Gastritis bleeding: without bleeding Qualified Code(s): K29.50 - Unspecified chronic gastritis without bleeding Disposition: Discharge to Home or Self Care Condition: Fair Departure Forms: ED Discharge - Pt. Copy, Patient Portal Self Enrollment Diet: bland diet, diabetic diet Activity: increase activity as tolerated Referrals: SERGEY LINK [Primary Care Provider] - 1-5 Days Prescriptions: Ondansetron Odt [Zofran ODT] 4 mg PO Q8HR PRN #5 tab PRN Reason: Nausea--Moderate levoFLOXacin [Levaquin] 500 mg PO DAILY #7 tab Metronidazole 500 mg PO TID #20 tab Home Medications: Ambulatory Orders ALPRAZolam [Xanax] 0.25 mg PO BEDTIME PRN 11/09/19 Cyclobenzaprine HCl [Flexeril] 10 mg PO BEDTIME PRN 11/09/19 Esomeprazole Magnesium 40 mg PO DAILY 11/09/19 Metformin HCl [Fortamet] 500 mg PO BID 11/09/19 Ondansetron Odt [Zofran ODT] 4 mg PO Q6H PRN #6 tab 11/09/19 Metronidazole 500 mg PO TID #20 tab 02/12/20 Ondansetron Odt [Zofran ODT] 4 mg PO Q8HR PRN #5 tab 02/12/20 levoFLOXacin [Levaquin] 500 mg PO DAILY #7 tab 02/12/20 Additional Instructions: The patient is a 50-year-old female presented emergency room with a constellation of symptoms. Patient has tested positive for strep throat. She will be covered with Levaquin for this due to her penicillin allergy. Additionally the patient is going to be covered for the possibility of a mild diverticulitis flare giving her the majority of her GI symptoms with metronidazole additionally. She does need to take both antibiotics above with a little bit of food to help prevent stomach upset. Additionally patient has a scopolamine patch in place to help reduce nausea. If the patient is becoming confused or too drowsy, then the patch needs to be removed. She will be written for some Zofran additionally to help control nausea and vomiting if needed. The patient already has Carafate at home, which she needs to resume taking 4 times daily for the next 2 weeks. She is also continuing her Nexium. She can take [id number] oral Maalox or Mylanta as well to help as needed. She needs to keep her self well-hydrated and maintain a bland diet. She no doubt has some chronic gastritis and reflux issues contributing. She has received 2 L of IV fluids for dehydration. Obviously if the patient is failing to improve with this regimen over the next few days, then re-evaluation and possibly additional work-up would be warranted. 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 I would recommend that she follow-up with her primary care doctor early next week for repeat evaluation otherwise. ER warnings are given.
[2020-02-12 10:58] VITALS: BP 137/88; O2SAT 98
== END 2020-02-12 10:56 | disposition home or self-care (01) ==
LOC: ER 06:50
DX: J02.0 Streptococcal pharyngitis (principal); E86.0 Dehydration; K29.50 Unspecified chronic gastritis without bleeding; K57.92 Diverticulitis of intestine, part unspecified, without perforation or abscess without bleeding; E11.9 Type 2 diabetes mellitus without complications; Z79.899 Other long term (current) drug therapy
CPT/HCPCS: 36415; 74019; 80053; 81001; 82150; 82550; 82553; 83605; 83690; 83735; 83880; 84443; 84484; 84703; 85025; 85610; 85730; 87040; 87635; 87880; 93005; J7030

== ENCOUNTER 2020-02-26 22:39 | Emergency (ER) | payer BC ==
--- NOTE | 2020-02-26 23:05 | ED.PDOC ---
History of Present Illness - General Time Seen by Provider: 02/26/20 22:57 - History of Present Illness Initial Comments: 50 yo F PMH Anxiety/Depression (denies hallucinations but admits suicidal ideation 'from feeling so bad' plan is to 'just take medicine') presents to ED well known to ED staff c/o basically dolan-positive ROS with abdominal pain subjective fever chills nausea vomiting diarrhea non bilious non bloody also reports chest pain denies sob diaphoresis admits decreased appetite and disturbed rest no change in bladder has PMD Dr. Boland for follow up denies drinking or smoking admits FH DM denies FH HTN no other c/o today. PPE worn-N95 surgical mask with attached face shield over N95 gloves goggles and face shield over that Allergies/Adverse Reactions: Allergies Penicillins Allergy (Verified 02/12/20 07:06) Rash Prochlorperazine [From Compazine] Allergy (Verified 02/12/20 07:06) Other generalized hot feeling all over body Sulfa Antibiotics Allergy (Verified 02/12/20 07:06) Other generalized hot feeling all over body Home Medications: Ambulatory Orders ALPRAZolam [Xanax] 0.25 mg PO BEDTIME PRN 11/09/19 Cyclobenzaprine HCl [Flexeril] 10 mg PO BEDTIME PRN 11/09/19 Esomeprazole Magnesium 40 mg PO DAILY 11/09/19 Metformin HCl [Fortamet] 500 mg PO BID 11/09/19 Ondansetron Odt [Zofran ODT] 4 mg PO Q6H PRN #6 tab 11/09/19 Metronidazole 500 mg PO TID #20 tab 02/12/20 Ondansetron Odt [Zofran ODT] 4 mg PO Q8HR PRN #5 tab 02/12/20 levoFLOXacin [Levaquin] 500 mg PO DAILY #7 tab 02/12/20 Review of Systems - Review of Systems Constitutional: States: see HPI EENTM: States: see HPI Respiratory: States: see HPI Cardiology: States: see HPI Gastrointestinal/Abdominal: States: see HPI Genitourinary: States: see HPI Musculoskeletal: States: see HPI Skin: States: see HPI Neurological: States: see HPI Endocrine: States: see HPI Past Medical History (General) - Patient Medical History Hx Seizures: No Hx Stroke: No Hx Dementia: No Hx Asthma: No Hx of COPD: No Hx Cardiac Disorders: No Hx Congestive Heart Failure: No Hx Pacemaker: No Hx Hypertension: No Hx Thyroid Disease: No Hx Diabetes: Yes Hx Gastroesophageal Reflux: Yes Hx Renal Disease: No Hx Cancer: No Hx of HIV: No Hx Hepatitis C: No Hx MRSA: No Surgical History: cholecystectomy, Hysterectomy - Vaccination History Hx Tetanus, Diphtheria Vaccination: No Hx Influenza Vaccination: No Hx Pneumococcal Vaccination: No - Social History Hx Tobacco Use: No Hx Chewing Tobacco Use: No Hx Alcohol Use: No Hx Substance Use: No Hx Substance Use Treatment: No Hx Depression: No Feels Threatened In Home Enviroment: No Feels Threatened In a Relationship: No Hx Physical Abuse: No Hx Emotional Abuse: No Hx Suspected Abuse: No - Female History Patient is a Female of Child Bearing Age (10 -59 yrs old): No Patient : No - Triage Comment ED Triage Comment: The patient was alert and oriented times 4 and complained of upper right side abdomianl pain. She complained of N/V for the past 2 days and was nauseated at the time of assessment. Family Medical History - Family History Mother Living Status: Hx Family Congestive Heart Failure: Yes Hx Family Hypertension: Yes Hx Family Stroke: Yes Hx Cardiac Disease: Yes Hx Family Diabetes: Yes - mom/sister Father Living Status: Hx Family Congestive Heart Failure: Yes Physical Exam - Physical Exam General Appearance: No apparent distress Eye Exam: bilateral normal Ears, Nose, Throat: normal ENT inspection Neck: non-tender, full range of motion Respiratory: no respiratory distress Cardiovascular/Chest: regular rate, rhythm Gastrointestinal/Abdominal: soft, tenderness Rectal Exam: deferred Back Exam: normal inspection Extremity: normal range of motion, non-tender Neurologic: no motor/sensory deficits Skin Exam: normal color Progress - Progress Progress: 02/26/20 23:06 A/P-Suicidal Ideation Abdominal Pain Chest Pain Nausea Vomiting-iv bolus tylenol zofran cbc cmp lipase trop ekg 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 ox asa ct abdomen pelvis behavioral health assessment reassess 02/26/20 23:41 EKG-non specific TW changes No STEMI NSR 75bpm 02/27/20 00:06 Laboratory Tests 02/26/20 02/26/20 02/26/20 22:58 22:58 22:58 WBC 11.3 H RBC 4.80 Hgb 13.4 Hct 39.9 MCV 83.2 MCH 27.9 MCHC 33.6 RDW 13.7 Plt Count 317 MPV 7.1 L Absolute Neuts (auto) 8.60 H Absolute Lymphs (auto) 1.90 Absolute Monos (auto) 0.80 Absolute Eos (auto) 0.10 Absolute Basos (auto) 0.10 Neutrophils % 75.5 Lymphocytes % 16.3 L Monocytes % 6.8 Eosinophils % 0.7 L Basophils % 0.7 PT 10.1 INR 1.02 PTT (SP) 27.1 Sodium 138 Potassium 3.4 L Chloride 99 L Carbon Dioxide 28 Anion Gap 14.4 BUN 10 Creatinine 0.89 BUN/Creatinine Ratio 11.2 Random Glucose 142 H Serum Osmolality 277.1 Calcium 9.5 Total Bilirubin 0.7 AST 26 ALT 27 Alkaline Phosphatase 87 Troponin I Serum Total Protein 8.1 Albumin 4.5 Globulin 3.6 H Albumin/Globulin Ratio 1.3 Lipase 21 L Urine Color Urine Appearance Urine pH Ur Specific Pyatt Urine Protein Urine Glucose (UA) Urine Ketones Urine Blood Urine Nitrite Urine Bilirubin Urine Urobilinogen Ur Leukocyte Esterase Urine RBC Urine WBC Ur Epithelial Cells Urine Bacteria Urine HCG, Qual Salicylates < 4.0 Urine Opiates Screen Acetaminophen < 10.0 L Urine Barbiturates Ur Phencyclidine Scrn U Amphetamin/Meth Scrn U Benzodiazepines Scrn U Cocaine Metab Screen U Cannabinoids Screen Ethyl Alcohol 02/26/20 02/26/20 02/26/20 22:58 22:58 22:58 WBC RBC Hgb Hct MCV MCH MCHC RDW Plt Count MPV Absolute Neuts (auto) Absolute Lymphs (auto) Absolute Monos (auto) Absolute Eos (auto) Absolute Basos (auto) Neutrophils % Lymphocytes % Monocytes % Eosinophils % Basophils % PT INR PTT (SP) Sodium Potassium Chloride Carbon Dioxide Anion Gap BUN Creatinine BUN/Creatinine Ratio Random Glucose Serum Osmolality Calcium Total Bilirubin AST ALT Alkaline Phosphatase Troponin I < 0.02 Serum Total Protein Albumin Globulin Albumin/Globulin Ratio Lipase Urine Color Urine Appearance Urine pH Ur Specific Pyatt Urine Protein Urine Glucose (UA) Urine Ketones Urine Blood Urine Nitrite Urine Bilirubin Urine Urobilinogen Ur Leukocyte Esterase Urine RBC Urine WBC Ur Epithelial Cells Urine Bacteria Urine HCG, Qual Salicylates Urine Opiates Screen Negative Acetaminophen Urine Barbiturates Negative Ur Phencyclidine Scrn Negative U Amphetamin/Meth Scrn Negative U Benzodiazepines Scrn Positive H U Cocaine Metab Screen Negative U Cannabinoids Screen Negative Ethyl Alcohol < 5.40 02/26/20 02/26/20 22:59 23:01 WBC RBC Hgb Hct MCV MCH MCHC RDW Plt Count MPV Absolute Neuts (auto) Absolute Lymphs (auto) Absolute Monos (auto) Absolute Eos (auto) Absolute Basos (auto) Neutrophils % Lymphocytes % Monocytes % Eosinophils % Basophils % PT INR PTT (SP) Sodium Potassium Chloride Carbon Dioxide Anion Gap BUN Creatinine BUN/Creatinine Ratio Random Glucose Serum Osmolality Calcium Total Bilirubin AST ALT Alkaline Phosphatase Troponin I Serum Total Protein Albumin Globulin Albumin/Globulin Ratio Lipase Urine Color Yellow Urine Appearance Clear Urine pH 6.0 Ur Specific Pyatt 1.020 Urine Protein Negative Urine Glucose (UA) Negative Urine Ketones 15 H Urine Blood Negative Urine Nitrite Negative Urine Bilirubin Negative Urine Urobilinogen 0.2 Ur Leukocyte Esterase Negative Urine RBC 0-1 Urine WBC 0-1 Ur Epithelial Cells 3-5 Urine Bacteria 0 Urine HCG, Qual Negative Salicylates Urine Opiates Screen Acetaminophen Urine Barbiturates Ur Phencyclidine Scrn U Amphetamin/Meth Scrn U Benzodiazepines Scrn U Cocaine Metab Screen U Cannabinoids Screen Ethyl Alcohol 02/27/20 01:55 Laboratory Tests 02/26/20 02/26/20 02/26/20 22:58 22:58 22:58 WBC 11.3 H RBC 4.80 Hgb 13.4 Hct 39.9 MCV 83.2 MCH 27.9 MCHC 33.6 RDW 13.7 Plt Count 317 MPV 7.1 L Absolute Neuts (auto) 8.60 H Absolute Lymphs (auto) 1.90 Absolute Monos (auto) 0.80 Absolute Eos (auto) 0.10 Absolute Basos (auto) 0.10 Neutrophils % 75.5 Lymphocytes % 16.3 L Monocytes % 6.8 Eosinophils % 0.7 L Basophils % 0.7 PT 10.1 INR 1.02 PTT (SP) 27.1 Sodium 138 Potassium 3.4 L Chloride 99 L Carbon Dioxide 28 Anion Gap 14.4 BUN 10 Creatinine 0.89 BUN/Creatinine Ratio 11.2 Random Glucose 142 H Serum Osmolality 277.1 Calcium 9.5 Total Bilirubin 0.7 AST 26 ALT 27 Alkaline Phosphatase 87 Troponin I Serum Total Protein 8.1 Albumin 4.5 Globulin 3.6 H Albumin/Globulin Ratio 1.3 Lipase 21 L Urine Color Urine Appearance Urine pH Ur Specific Pyatt Urine Protein Urine Glucose (UA) Urine Ketones Urine Blood Urine Nitrite Urine Bilirubin Urine Urobilinogen Ur Leukocyte Esterase Urine RBC Urine WBC Ur Epithelial Cells Urine Bacteria Urine HCG, Qual Salicylates < 4.0 Urine Opiates Screen Acetaminophen < 10.0 L Urine Barbiturates Ur Phencyclidine Scrn U Amphetamin/Meth Scrn U Benzodiazepines Scrn U Cocaine Metab Screen U Cannabinoids Screen Ethyl Alcohol 02/26/20 02/26/20 02/26/20 22:58 22:58 22:58 WBC RBC Hgb Hct MCV MCH MCHC RDW Plt Count MPV Absolute Neuts (auto) Absolute Lymphs (auto) Absolute Monos (auto) Absolute Eos (auto) Absolute Basos (auto) Neutrophils % Lymphocytes % Monocytes % Eosinophils % Basophils % PT INR PTT (SP) Sodium Potassium Chloride Carbon Dioxide Anion Gap BUN Creatinine BUN/Creatinine Ratio Random Glucose Serum Osmolality Calcium Total Bilirubin AST ALT Alkaline Phosphatase Troponin I < 0.02 Serum Total Protein Albumin Globulin Albumin/Globulin Ratio Lipase Urine Color Urine Appearance Urine pH Ur Specific Pyatt Urine Protein Urine Glucose (UA) Urine Ketones Urine Blood Urine Nitrite Urine Bilirubin Urine Urobilinogen Ur Leukocyte Esterase Urine RBC Urine WBC Ur Epithelial Cells Urine Bacteria Urine HCG, Qual Salicylates Urine Opiates Screen Negative Acetaminophen Urine Barbiturates Negative Ur Phencyclidine Scrn Negative U Amphetamin/Meth Scrn Negative U Benzodiazepines Scrn Positive H U Cocaine Metab Screen Negative U Cannabinoids Screen Negative Ethyl Alcohol < 5.40 02/26/20 02/26/20 02/27/20 22:59 23:01 01:03 WBC RBC Hgb Hct MCV MCH MCHC RDW Plt Count MPV Absolute Neuts (auto) Absolute Lymphs (auto) Absolute Monos (auto) Absolute Eos (auto) Absolute Basos (auto) Neutrophils % Lymphocytes % Monocytes % Eosinophils % Basophils % PT INR PTT (SP) Sodium Potassium Chloride Carbon Dioxide Anion Gap BUN Creatinine BUN/Creatinine Ratio Random Glucose Serum Osmolality Calcium Total Bilirubin AST ALT Alkaline Phosphatase Troponin I < 0.02 Serum Total Protein Albumin Globulin Albumin/Globulin Ratio Lipase Urine Color Yellow Urine Appearance Clear Urine pH 6.0 Ur Specific Pyatt 1.020 Urine Protein Negative Urine Glucose (UA) Negative Urine Ketones 15 H Urine Blood Negative Urine Nitrite Negative Urine Bilirubin Negative Urine Urobilinogen 0.2 Ur Leukocyte Esterase Negative Urine RBC 0-1 Urine WBC 0-1 Ur Epithelial Cells 3-5 Urine Bacteria 0 Urine HCG, Qual Negative Salicylates Urine Opiates Screen Acetaminophen Urine Barbiturates Ur Phencyclidine Scrn U Amphetamin/Meth Scrn U Benzodiazepines Scrn U Cocaine Metab Screen U Cannabinoids Screen Ethyl Alcohol EXAM DESCRIPTION: XR Chest,1 View CLINICAL HISTORY: pain TECHNIQUE: Single frontal view of the chest is submitted. COMPARISON: 01/28/2019 FINDINGS: Heart: The cardiothoracic silhouette is within normal limits. Lungs: No focal consolidation. Mediastinum: Unremarkable Pleura: No appreciable effusion. No pneumothorax. Bones: Multilevel spondylosis. No acute fracture. Upper abdomen: Unremarkable IMPRESSION: No acute disease. Electronically signed by: Cori vázquez MD 02/27/2020 12:12 AM CDT EXAM: CT abdomen and pelvis with contrast. INDICATION: Abdominal pain, acute. TECHNIQUE: Contiguous axial CT images of the abdomen and pelvis. Intravenous contrast: Present. Oral contrast: Absent. DLP 737 mGy-cm. This exam was performed according to our departmental dose-optimization program, which includes automated exposure control, adjustment of the mA and/or kV according to patient size and/or use of iterative reconstruction technique. COMPARISON: 07/06/2018. FINDINGS: Lower chest: Partially imaged. Lung bases: Unremarkable. Cardiac apex: Unremarkable. Solid abdominal viscera: Liver: Fatty liver Gallbladder: Cholecystectomy Pancreas: Fatty replacement. Spleen: Unremarkable. Adrenal glands: Unremarkable. Right kidney: No hydronephrosis. Left kidney: No hydronephrosis. Urinary bladder: Collimated from view. Abdominal aorta: Mild atherosclerotic calcifications. Peritoneal: Free fluid: None. Free air: None. Other: No pathologic sized lymph nodes in the upper abdomen. Bowel: Stomach: Unremarkable. Small bowel: Unremarkable. Appendix: Unremarkable. Colon: Portions of the sigmoid colon have been collimated from view. Scattered diverticula are noted without evidence of diverticulitis. Rectum: Collimated from view. Bones: Unremarkable. IMPRESSION: Portions of the lower pelvis were collimated from view. No acute findings detected. Fatty liver. Electronically signed by: Fortunato Dunbar MD 02/27/2020 1:17 AM CDT Departure - Departure Clinical Impression: Suicidal ideation, Nausea Abdominal pain Qualifiers: Abdominal location: generalized Qualified Code(s): R10.84 - Generalized abdominal pain Chest pain Qualifiers: Chest pain type: unspecified Qualified Code(s): R07.9 - Chest pain, unspecified Vomiting Qualifiers: Vomiting type: unspecified Vomiting Intractability: unspecified Nausea presence: unspecified Qualified Code(s): R11.10 - Vomiting, unspecified Disposition: Discharge to Home or Self Care Condition: Fair Referrals: SERGEY LINK [Primary Care Provider] - 1-2 Days Home Medications: Ambulatory Orders ALPRAZolam [Xanax] 0.25 mg PO BEDTIME PRN 11/09/19 Cyclobenzaprine HCl [Flexeril] 10 mg PO BEDTIME PRN 11/09/19 Esomeprazole Magnesium 40 mg PO DAILY 11/09/19 Metformin HCl [Fortamet] 500 mg PO BID 11/09/19 Ondansetron Odt [Zofran ODT] 4 mg PO Q6H PRN #6 tab 11/09/19 Metronidazole 500 mg PO TID #20 tab 02/12/20 Ondansetron Odt [Zofran ODT] 4 mg PO Q8HR PRN #5 tab 02/12/20 levoFLOXacin [Levaquin] 500 mg PO DAILY #7 tab 02/12/20
[2020-02-26] MEDS: ONDANSETRON INJ 4 MG/2 ML VIAL IV ONE (23:18)
[2020-02-26] MEDS: ASPIRIN (CHEWABLE) 81 MG TAB PO ONE (23:18)
--- NOTE | 2020-02-27 00:14 | RAD ---
EXAM DESCRIPTION: XR Chest,1 View CLINICAL HISTORY: pain TECHNIQUE: Single frontal view of the chest is submitted. COMPARISON: 01/28/2019 FINDINGS: Heart: The cardiothoracic silhouette is within normal limits. Lungs: No focal consolidation. Mediastinum: Unremarkable Pleura: No appreciable effusion. No pneumothorax. Bones: Multilevel spondylosis. No acute fracture. Upper abdomen: Unremarkable IMPRESSION: No acute disease. Electronically signed by: Cori Cope MD 02/27/2020 12:12 AM CDT
--- NOTE | 2020-02-27 01:19 | CT ---
EXAM: CT abdomen and pelvis with contrast. INDICATION: Abdominal pain, acute. TECHNIQUE: Contiguous axial CT images of the abdomen and pelvis. Intravenous contrast: Present. Oral contrast: Absent. DLP 737 mGy-cm. This exam was performed according to our departmental dose-optimization program, which includes automated exposure control, adjustment of the mA and/or kV according to patient size and/or use of iterative reconstruction technique. COMPARISON: 07/06/2018. FINDINGS: Lower chest: Partially imaged. Lung bases: Unremarkable. Cardiac apex: Unremarkable. Solid abdominal viscera: Liver: Fatty liver Gallbladder: Cholecystectomy Pancreas: Fatty replacement. Spleen: Unremarkable. Adrenal glands: Unremarkable. Right kidney: No hydronephrosis. Left kidney: No hydronephrosis. Urinary bladder: Collimated from view. Abdominal aorta: Mild atherosclerotic calcifications. Peritoneal: Free fluid: None. Free air: None. Other: No pathologic sized lymph nodes in the upper abdomen. Bowel: Stomach: Unremarkable. Small bowel: Unremarkable. Appendix: Unremarkable. Colon: Portions of the sigmoid colon have been collimated from view. Scattered diverticula are noted without evidence of diverticulitis. Rectum: Collimated from view. Bones: Unremarkable. IMPRESSION: Portions of the lower pelvis were collimated from view. No acute findings detected. Fatty liver. Electronically signed by: Fortunato Dunbar MD 02/27/2020 1:17 AM CDT
[2020-02-27] MEDS: ACETAMINOPHEN 500 MG TAB PO ONE (03:04)
[2020-02-27 03:26] VITALS: BP 128/82; TEMP 98.6; O2SAT 100
== END 2020-02-27 03:20 | disposition home or self-care (01) ==
LOC: ER 22:39
DX: R07.9 Chest pain, unspecified (principal); R11.2 Nausea with vomiting, unspecified; R10.84 Generalized abdominal pain; R45.851 Suicidal ideations; R19.7 Diarrhea, unspecified; E11.9 Type 2 diabetes mellitus without complications; K21.9 Gastro-esophageal reflux disease without esophagitis; F41.9 Anxiety disorder, unspecified; F32.9 Major depressive disorder, single episode, unspecified; Z90.49 Acquired absence of other specified parts of digestive tract; Z79.899 Other long term (current) drug therapy; Z88.0 Allergy status to penicillin; Z88.8 Allergy status to other drugs, medicaments and biological substances; Z88.2 Allergy status to sulfonamides; Z79.84 Long term (current) use of oral hypoglycemic drugs
CPT/HCPCS: 36415; 71045; 74177; 80053; 80307; 80320; 80329; 81001; 81025; 83690; 84484; 85025; 85610; 85730; 93005; J2405

== ENCOUNTER → 2020-05-13 | Outpatient (CLI) | payer OTHER | LOC: YCFC.O 15:59 | PROVIDERS: ATTEND Nurse Practitioner | DX: Z20.828 Contact with and (suspected) exposure to other viral communicable diseases (principal); R82.79 Other abnormal findings on microbiological examination of urine; R19.7 Diarrhea, unspecified; R10.13 Epigastric pain; R00.9 Unspecified abnormalities of heart beat ==